=== PATIENT | female | born 1940 | race Caucasian/White ===

== ENCOUNTER 2019-06-26 19:21 | Inpatient (IN) | payer OTHER ==
[~2019-06-26] VITALS: Ht 154.9 cm; Wt 58.5 kg
--- OUTSIDE RECORDS SUMMARY | 2019-06-26 19:24 | XMS REPORT | Summary of Care ---
Author Author Roma Cisneros LVN Organization Unknown Address Unknown Phone Unavailable Care Team Providers Care Education Manager Name Role Phone AZIZA Villarreal, TUNDE Unavailable Unavailable ML Proctor, ASIM Unavailable Unavailable Blayne ROMAINRoma Unavailable Unavailable DONG Proctor, LEON Unavailable Unavailable THALIA Proctor, JOSE ARMANDO Unavailable Unavailable ML MIN LA, ASIM Lombardo Unavailable Unavailable STEPHEN MIN, ULYSSES Aldrich Unavailable Unavailable Kadeem MNI, Kuldeep Unavailable Unavailable GARTH MIN, CHIP Walters Unavailable Unavailable Thalia MIN, Jose Armando Unavailable Unavailable AZIZA WHITE SIDEWALL TIRE BUFFER-C, TUNDE D Unavailable Unavailable Dong MIN, Leon Unavailable Unavailable Unavailable Unavailable Functional Status Name Dates Details Functional status health issues are not documented Status: Name Dates Details Cognitive status health issues are not documented Status: Problems Name Dates Details Allergic rhinitis (477.9, J30.9) Status: Active Encounter for screening colonoscopy (V76.51, Z12.11) Status: Active Postoperative examination (V67.00, Z09) Status: Active Need for immunization against influenza (V04.81, Z23) Status: Active Tinnitus, bilateral (388.30, H93.13) Status: Active At risk for side effect of medication (V49.89, Z91.89) Status: Active Radicular pain of both lower extremities (724.4, M54.10) Status: Active Special Dr. Services Analysis Of Computerized Data Status: Active Duration Of Encounter - Review Of Prior Records (___ min) Status: Active Nonrheumatic aortic valve stenosis (424.1, I35.0) Status: Active Advanced care planning/counseling discussion (V65.49, Z71.89) Status: Active Fatigue (780.79, R53.83) Status: Active Breast cancer screening (V76.10, Z12.39) Status: Active Subclinical hyperthyroidism (242.90, E05.90) Status: Active Vitamin B12 deficiency (266.2, E53.8) Status: Active Left thyroid nodule (241.0, E04.1) Status: Active Chronic diarrhea (787.91, K52.9) Status: Active Cellulitis (682.9, L03.90) Status: Active Acute bronchitis due to infection (466.0, J20.8) Status: Active Aortic stenosis, moderate (424.1, I35.0) Status: Active Multiple thyroid nodules (241.1, E04.2) Status: Active Need for pneumococcal vaccination (V03.82, Z23) Status: Active Right knee pain (719.46, M25.561) Status: Active Lumbar canal stenosis (724.02, M48.061) Status: Active Weight loss, unintentional (783.21, R63.4) Status: Active Heart murmur (785.2, R01.1) Status: Active Annual physical exam (V70.0, Z00.00) Status: Active Bowel incontinence (787.60, R15.9) Status: Active Cramps, extremity (729.82, R25.2) Status: Active Smoking greater than 40 pack years (305.1, F17.210) Status: Active GERD (gastroesophageal reflux disease) (530.81, K21.9) Status: Active Elevated fasting blood sugar (790.21, R73.01) Status: Active Gout (274.9, M10.9) Status: Active Osteoporosis (733.00, M81.0) Status: Active Osteoarthrosis (715.90, M19.90) Status: Active Aortic stenosis, severe (424.1, I35.0) Status: Active Psoriasis (696.1, L40.9) Status: Active S/P aortic valve replacement (V43.3, Z95.2) Status: Active Anemia (285.9, D64.9) Status: Active 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) use of antithrombotics/antiplatelets (V58.63, Z79.02) Status: Active Medication management (V58.69, Z79.899) Status: Active 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, Z95.2) Status: Active Claudication (443.9, I73.9) Status: Active CAD S/P percutaneous coronary angioplasty (414.01, I25.10) Status: Active 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, Z95.2) Status: Active Peripheral vascular disease (443.9, I73.9) Status: Active Urinary tract infection (599.0, N39.0) Status: Active Essential (primary) hypertension (401.9, I10) Status: Active Hyperlipidemia (272.4, E78.5) Status: Active Lumbar degenerative disc disease (722.52, M51.36) Status: Active Gastroesophageal reflux disease with esophagitis (530.11, K21.0) Status: Active Pyuria (791.9, R82.81) Status: Active Abnormal MRI, lumbar spine (793.7, R93.7) Status: Active Medications Name Dates Details amLODIPine Besylate 5 MG Oral Tablet TAKE 1 TABLET BY MOUTH EVERY MORNING Quantity: 30 TUNDE ERVIN N.P. * Start : 25-Dec-2012 Active Lisinopril-hydroCHLOROthiazide 20-12.5 MG Oral Tablet TAKE 1 TABLET BY MOUTH EVERY DAY * Quantity: 90 Refills: 1 TUNDE ERVIN N.P. * Start : 17-Jan-2013 Active traMADol HCl - 50 MG Oral Tablet TAKE 1 TABLET BY MOUTH TWICE DAILY NEEDED * Quantity: 60 Refills: 0 ASIM BULL M.D. * Start : 20-Feb-2013 Active Fluticasone Propionate 50 MCG/ACT Nasal Suspension USE 1 SPRAY TO EACH NOSTRIL TWICE DAILY * Quantity: 16 Refills: 0 TUNDE ERVIN N.P. * Start : 05-Apr-2017 Active Alendronate Sodium 70 MG Oral Tablet TAKE 1 TABLET ONCE WEEKLY. * Refills: 0 Active Gabapentin 100 MG Oral Capsule TAKE 1 CAPSULE 3 TIMES DAILY- DR. LEON * Refills: 0 * Start : 16-Apr-2016 Active Iron TABS TAKE 1 TABLET DAILY * Refills: 0 Active Folic Acid TABS TAKE 1 TABLET DAILY * Refills: 0 Active Colestipol HCl - 1 GM Oral Tablet TAKE 1 TABLET BY MOUTH TWICE DAILY WITH FOOD * Quantity: 30 Refills: 0 TUNDE ERVIN N.P. * Start : 09-Jan-2018 Active Ventolin HFA 108 (90 Base) MCG/ACT Inhalation Aerosol Solution INHALE 1-2 PUFFS EVERY 8 HOURS PRN * Quantity: 1 Refills: 0 TUNDE ERVIN N.P. * Start : 20-May-2017 Active 18 GM Inhaler Methotrexate Sodium SOLN INJECTION WEEKLY * Refills: 0 Active predniSONE 10 MG Oral Tablet as needed * Refills: 0 Active Omeprazole 40 MG Oral Capsule Delayed Release TAKE 1 CAPSULE DAILY * Quantity: 30 Refills: 11 LEON UMANA M.D. * Start : 22-Sep-2017 Active Coenzyme Q10 200 MG Oral Capsule TAKE 1 CAPSULE Daily AT DINNER * Quantity: 30 Refills: 0 AZIZA N.PTUNDE Cuellar * Start : 03-May-2018 Active Inflectra 100 MG Intravenous Solution Reconstituted EVERY 6-8 WEEKS * Refills: 0 Active Ezetimibe 10 MG Oral Tablet TAKE 1 TABLET BY MOUTH EVERY DAY * Quantity: 90 Refills: 0 JOSE ARMANDO VÁSQUEZ M.D. * Start : 16-Aug-2018 Active methylPREDNISolone 4 MG Oral Tablet Therapy Pack take as directed on package * Quantity: 1 Refills: 0 TUNDE ERVIN N.P. * Start : 19-Dec-2018 Active 21 Tablet Pack Cyclobenzaprine HCl - 5 MG Oral Tablet TAKE 1 TABLET AT BEDTIME. * Quantity: 14 Refills: 0 TUNDE ERVIN N.P. * Start : 19-Dec-2018 Active Allergies and Adverse Reactions Name Dates Details Codeine Derivatives (Allergy) Status: Active Novocain SOLN (Allergy) Status: Active Penicillins (Allergy) Status: Active Past Medical History Name Dates Details History of Cervical Cancer (V10.41) Status: Resolved History of Drug dependence (304.90, F19.20) Status: Resolved History of esophageal reflux (V12.79, Z87.19) Status: Resolved History of Peripheral neuropathy, hereditary/idiopathic (356.9, G60.9) Status: Resolved History of Rheumatoid arthritis (714.0, M06.9) Status: Resolved History of sciatica (V12.49, Z86.69) Status: Resolved Procedures Procedure Dates Details MRI Spine lumbar wo contrast [id number] Date: 09-Jan-2019 History of Appendectomy Completed History of Tonsillectomy With Adenoidectomy Completed History of Hysterectomy Completed History of Heart surgery Completed History of Transcatheter aortic valve replacement Completed Immunization Name Dates Details Varicella on: Dec-2007 Td on: 05-Nov-2009 Influenza on: 11-Jan-2011 Fluzone INJ Lot #: [id number] on: 27-Dec-2013 Influenza on: Jun-2015 Prevnar 13 Intramuscular Suspension Lot #: [id number] on: 24-Oct-2015 Fluzone High-Dose SUSP Lot #: [id number] on: 23-Apr-2016 Influenza, seasonal, injectable on: 23-Feb-2017 Pneumovax 23 25 MCG/0.5ML Injection Injectable Lot #: [id number] on: 14-Sep-2017 Influenza, high dose seasonal, preservative-free on: Apr-2018 Family History Name Dates Details Family history of Brain Cancer (V16.8) Comments: Family History Status: Active Family history of Leukemia (V16.6) Comments: Family History Status: Active Family history of Heart Disease (V17.49) Comments: Family History Status: Active Family history of Arthritis (V17.7) Comments: Family History Status: Active Name Dates Details Family history of Cancer Status: Active Name Dates Details Family history of Cancer Status: Active Social History Name Dates Details - Status: Name Dates Details Former smoker Vital Signs Date Test Result Details No Known Vitals to report Results Date Description Value Details Results not documented Plan of Care Name Dates Details Planned Observations Planned Goals not documented Planned Encounters Appointment; JOSE ARMANDO VÁSQUEZ M.D. On: 22-May-2019 12:20 Appointment; ULYSSES MITCHELL On: 20-Jun-2019 11:00 Appointment; TITO AUSTIN On: 03-Sep-2019 13:00 Appointment; KULDEEP WALDROP M.D. On: 05-Sep-2019 13:00 Instructions Name Dates Details Instructions not documented Encounters Appointment; TUNDE ERVIN NP Encounter Diagnosis: Problem not documented On: 09-Mar-2017 10:00 Appointment; TUNDE ERVIN NP Encounter Diagnosis: Problem not documented On: 18-May-2017 11:45 Appointment; TUNDE ERVIN NP Encounter Diagnosis: Problem not documented On: 14-Sep-2017 10:00 Appointment; JOSE ARMANDO VÁSQUEZ M.D. Encounter Diagnosis: Problem not documented On: 20-Sep-2017 14:20 Appointment; LEON UMANA M.D. Encounter Diagnosis: Problem not documented On: 22-Sep-2017 13:00 Appointment; [facility] Encounter Diagnosis: Problem not documented On: 28-Sep-2017 13:00 Appointment; JOSE ARMANDO VÁSQUEZ M.D. Encounter Diagnosis: Problem not documented On: 28-Sep-2017 14:00 Appointment; JOSE ARMANDO VÁSQUEZ M.D. Encounter Diagnosis: Problem not documented On: 11-Nov-2017 10:40 Appointment; TUNDE ERVIN NP Encounter Diagnosis: Problem not documented On: 03-May-2018 9:30 Appointment; [facility] Encounter Diagnosis: Problem not documented On: 17-May-2018 13:00 Appointment; KULDEEP WALDROP M.D. Encounter Diagnosis: Problem not documented On: 17-May-2018 14:00 Appointment; ULYSSES MITCHELL Encounter Diagnosis: Problem not documented On: 19-May-2018 14:00 Appointment; JOSE ARMANDO VÁSQUEZ M.D. Encounter Diagnosis: Problem not documented On: 16-Jun-2018 12:20 Appointment; TUNDE ERVIN NP Encounter Diagnosis: Problem not documented On: 21-Jun-2018 12:00 Appointment; KULDEEP WALDROP M.D. Encounter Diagnosis: Problem not documented On: 30-Jun-2018 14:00 Appointment; [facility] Encounter Diagnosis: Problem not documented On: 13-Jul-2018 9:30 Appointment; KULDEEP WALDROP M.D. Encounter Diagnosis: Problem not documented On: 19-Jul-2018 11:40 Appointment; TUNDE ERVIN NP Encounter Diagnosis: Problem not documented On: 26-Jul-2018 10:15 Appointment; ASIM BULL M.D. Encounter Diagnosis: Problem not documented On: 10-Aug-2018 15:00 Appointment; JOSE ARMANDO VÁSQUEZ M.D. Encounter Diagnosis: Problem not documented On: 16-Aug-2018 12:20 Appointment; [facility] Encounter Diagnosis: Problem not documented On: 24-Aug-2018 15:00 Appointment; ULYSSES MITCHELL Encounter Diagnosis: Problem not documented On: 25-Aug-2018 13:45 Appointment; KULDEEP WALDROP M.D. Encounter Diagnosis: Problem not documented On: 06-Sep-2018 13:40 Appointment; JOSE ARMANDO VÁSQUEZ M.D. Encounter Diagnosis: Problem not documented On: 17-Nov-2018 13:20 Appointment; TUNDE ERVIN NP Encounter Diagnosis: Problem not documented On: 19-Dec-2018 13:00 Appointment; ULYSSES MITCHELL Encounter Diagnosis: Problem not documented On: 20-Dec-2018 10:30
--- OUTSIDE RECORDS SUMMARY | 2019-06-26 19:24 | XMS REPORT ---
Author Author [facility] Address Unknown Phone Unavailable Care Team Providers Care Electronic Tester Name Role Phone Unavailable Unavailable Payers Payer Name Policy Type Policy Number Effective Date Expiration Date Problems This patient has no known problems. Allergies, Adverse Reactions, Alerts Allergy Name Allergy Type Status Severity Reaction(s) Onset Date Inactive Date Treating Clinician Comments Procaine HCl DA Active MO 2014-01-11 00:00:00 Penicillins DA Active MO 2014-01-11 00:00:00 codeine DA Active MO 2014-01-11 00:00:00 Medications This patient has no known medications. Encounters Start Date/Time End Date/Time Encounter Type Admission Type Attending Clinicians Care Facility Care Department Encounter ID 2018-07-13 05:08:00 Inpatient [facility] [id number] Results Test Description Test Time Test Comments Text Results Atomic Results Result Comments - XR L-SPINE 4 + VIEWS 2019-05-17 11:33:00 FAX: Cristhian Fleiz MD [phone] [place]: O St: [facility] FAX: Houston Santos MD [phone] Name: JEANNA TYSON [facility] : 1940 Age/S: 78/F [address] Unit #: [id number] Loc: [place] [address] Phys: Cristhian Montiel MD Acct: [id number] Dis Date: Status: REG CLI PHONE #: [phone] Exam Date: 05/17/2019 1100 FAX #: [phone] Reason: LUMBAR SPONDYLOLISTHESIS EXAMS: CPT CODE: [id number] XR L-SPINE 4 + VIEWS 64981 HISTORY: LUMBAR SPONDYLOLISTHESIS TECHNIQUE: AP, flexion and extension, lateral, and lumbosacral views of the lumbar spine. Comparison:Lumbar spine radiographs February 08, 2019 FINDINGS/ IMPRESSION: Postsurgical changes of L4-L5 fusion with placement of disc spacer is once again seen. No spondylolisthesis of the fused portion of the spine or the remainder of the spine. There is disc degeneration at T12-L1 and L1-L2 with small vertebral body osteophytes that is unchanged from the previous exam. Stent graft in the common iliac arteries are unchanged in appearance. Location: [facility] at 1133 Reported and signed by: Mansoor Cota MD CC: Cristhian Montiel MD; Houston Grider Technologist: RT SHAD(Lissette) Trnscrd Date/Time/By: 05/17/2019 (1139) : By: [email or web address] Orig Print D/T: S: 05/17/2019 (9378) PAGE 1 Signed Report INTERVERTEBRAL DISC 2019-02-12 11:09:00 RUN DATE: 02/12/19 [place] [facility] PAGE 1 RUN TIME: 1109 Specimen Inquiry RUN USER: INTERFACE PATIENT: JEANNA TYSON LOC: ERINN U #: [id number] AGE/SX: 78/F ROOM: [facility] RE02/07/19REG DR: Cristhian Montiel MD : 42 BED: A DIS: 02/08/19 STATUS: DIS IN TLOC: SPEC #: [id number] RECD: 02/08/19 STATUS: MARI REQ #: [id number] DIMA: 02/07/19 DR: Cristhian Montiel MD ENTERED: 02/08/19 SP TYPE: INT DISC OTHR DR: Houston Grider MD ORDERED: GROSS COPIES TO: Cristhian Montiel MD [address] [address] [place] [id number] [facility] [place] [address] PROCEDURES: GROSS (02/09/19) TISSUES: LUMBAR REGION - DISC CLINICAL HISTORY COLLECTION DATE: 02/07/19 L4-5 SPONDYLOLISTHESIS AND RECURRENT DISC HERNIATION FINAL DIAGNOSIS Lumbar lamina and ligament, L4-5, laminectomy: CARTILAGE WITH DEGENERATIVE CHANGE NEGATIVE FOR MALIGNANCY RRB/sm D 36256, 36817 MACROSCOPIC The specimen is received in formalin, labeled with the patient's name, identified as "lumbar lamina and ligament", and consists of multiple portions of ta-pink soft and rubbery and minute portions of possible bone, measuring 3.0 x 3.0 x 1.0 cm in aggregate. Cattery Operator tissue is submitted after light decalcification in cassettes (1A and 1B). CONTINUED ON NEXT PAGE RUN DATE: 02/12/19 [facility] PAGE 2 RUN TIME: 1109 Specimen Inquiry RUN USER: INTERFACE SPEC #: [id number] PATIENT: JEANNA TYSON #[id number] (Continued) MACROSCOPIC (Continued) GROSS PERFORMED AT [facility] [address] [place] [address] [phone])[phone] MICROSCOPIC All of the stains, including any controls performed, stain appropriately. MICROSCOPIC PERFORMED AT [facility] [address] [place] [address] [phone] PERFORMING SITE Diagnosis performed at: [facility], DIETER [address] [place] [address] Signed SIGNATURE ON FILE Edmund Bautista MD 02/12/19 1109 END OF REPORT - XR L-SPINE 2/3 VIEWS 2019-02-08 10:18:00 FAX: Cristhian Feliz MD [phone] [place]: B St: [facility] FAX: Houston Santos MD [phone] Name: JEANNA TYSON [facility] : 1940 Age/S: 78/F [address] Unit #: [id number] Loc: [address] [place] [address] Phys: Cristhian Montiel MD Acct: [id number] Dis Date: Status: ADM IN PHONE #: [phone] Exam Date: 02/08/2019 [facility] FAX #: [phone] Reason: s/p fusion EXAMS: CPT CODE: [id number] XR L-SPINE 2/3 VIEWS 19215 HISTORY: s/p fusion TECHNIQUE: AP, lateral, and lumbosacral views of the lumbar spine. Comparison:CT lumbar spine January 28, 2019 FINDINGS: The patient has undergone interval posterior fusion of L4-L5 with placement of disc spacer. There is satisfactory bony alignment postoperatively. Vertebral body heights and intervertebral disc spaces are preserved. Small vertebral body osteophytes are present in the lower thoracic and upper lumbar spine. There are stent grafts in the common iliac arteries. No foraminal narrowing. IMPRESSION: Satisfactory bony alignment following fusion of L4-L5 via posterior approach with placement of disc spacer. Location: [facility] at 1018 Reported and signed by: Mansoor Cota MD CC: Cristhian Montiel MD; Houston Grider Technologist: RT DARIUS(Lissette) Trnscrd Date/Time/By: 02/08/2019 (1018) : By: [email or web address] Orig Print D/T: S: 02/08/2019 (9757) PAGE 1 Signed Report HGB HCT 2019-02-08 07:07:00 HEMOGLOBIN (test code=HGB) 9.2 gram/dL 11.5-15.5 HEMATOCRIT (test code=HCT) 28.5 % 36.0-46.0 HGB [id number] 16:01:00* Test Item Value Reference Range Comments HEMOGLOBIN (test code=HGB) 9.4 gram/dL 11.5-15.5 HEMATOCRIT (test code=HCT) 29.4 % 36.0-46.0 BASIC METABOLIC [id number] 11:28:00* Test Item Value Reference Range Comments SODIUM (test code=NA) 133 mmol/L 136-145 POTASSIUM (test code=K) 3.8 mmol/L 3.5-5.1 CHLORIDE (test code=CL) 98.0 mmol/L 98-107 CARBON DIOXIDE (test code=CO2) 28.0 mmol/L 21-32 ANION GAP (test code=GAP) 10.8 10-20 GLUCOSE (test code=GLU) 108 mg/dL 74-106 BLOOD UREA NITROGEN (test code=BUN) 8 mg/dL 7-18 GLOMERULAR FILTRATION RATE (test code=GFR) > 60 mL/min >=60 Estimated GFR by using Modified MDRD formula.Chronic kidney disease is defined as either kidney damageor GFR <60 mL/min/1.73 m2 for >3 months. CREATININE (test code=CREAT) 0.60 mg/dL 0.55-1.02 Note change in reference range due to change in reagent. BUN/CREATININE RATIO (test code=BUN/CREA) 13.7 10-20 CALCIUM (test code=CA) 9.3 mg/dL 8.5-10.1 BASIC METABOLIC [id number] 11:26:00* Test Item Value Reference Range Comments SODIUM (test code=NA) 133 mmol/L 136-145 POTASSIUM (test code=K) 3.8 mmol/L 3.5-5.1 CHLORIDE (test code=CL) 98.0 mmol/L 98-107 CARBON DIOXIDE (test code=CO2) mmol/L 21-32 ANION GAP (test code=GAP) 10-20 GLUCOSE (test code=GLU) mg/dL 74-106 BLOOD UREA NITROGEN (test code=BUN) mg/dL 7-18 GLOMERULAR FILTRATION RATE (test code=GFR) mL/min >=60 CREATININE (test code=CREAT) mg/dL 0.55-1.02 BUN/CREATININE RATIO (test code=BUN/CREA) 10-20 CALCIUM (test code=CA) mg/dL 8.5-10.1 PROTHROMBIN [id number] 11:15:00* Test Item Value Reference Range Comments PROTHROMBIN TIME PATIENT (test code=PTP) 12.9 seconds 9.0-14.0 INTERNATIONAL NORMAL RATIO (test code=INR) 1.1 0.8-1.2 The therapeutic range for oral anticoagulant therapy formost indications is an international normalized ratio (INR)of between 2.0 and 3.0. The recommended therapeutic INRrange for various clinical situations is listed below: Clinical Situation INR range Pulmonary e mbolism treatment (2.0-3.0)Venous thrombosis treatmentVenous thrombosis prophylaxis (high risk surgery)Prevention of systemic embolism from: Acute myocardial infarction Valvular heart disease Atrial fibrillation Mechanical prosthetic heart valves (2.5-3.5) THROMBOPLASTIN TIME [id number] 11:15:00* Test Item Value Reference Range Comments THROMBOPLASTIN TIME PARTIAL (test code=PTT) 33.4 seconds 25.0-36.5 - CT L-SPINE W/O [id number] 11:10:00 Name: JEANNA TYSON [facility] : 1940 Age/S: 78 / F [address] [facility] Unit #: [id number] Loc: [place] [address] Phys: Cristhian Montiel MD Acct: [id number] Dis Date: Status: PRE IN PHONE #: [phone] Exam Date: 02/05/2019 1030 FAX #: [phone] Reason: PRE OP EXAMS: CPT CODE: [id number] CT L-SPINE W/O CONTRAST 36446 HISTORY: PRE OP TECHNIQUE: 2.[address] of the lumbar spine with coronal and sagittal reformatting. Automated exposure control for dose reduction. COMPARISON: None FINDINGS: No acute fracture. No subluxation. There is grade 1 L4-L5 anterolisthesis. Remainder of the lumbar spine is appropriately aligned. Vertebral body heights are preserved. However there are small vertebral body osteophytes throughout the lumbar spine. There is height loss of the L4-L5 disc space. There is a left-sided L4 pars defect. Atherosclerotic disease is scattered throughout the abdominal aorta and the visualized mesenteric arteries. There is also extensive atherosclerotic disease in the iliac arteries. Bilateral common iliac artery stents are present. T12-L1: No disc bulge or protrusion. No cental canal or foraminal stenosis L1-L2: No disc bulge or protrusion. No cental canal or foraminal stenosis L2-L3: No disc bulge or protrusion. No cental canal or foraminal stenosis L3-L4: No disc bulge or protrusion. No cental canal or foraminal stenosis L4-L5: No disc bulge or protrusion. No cental canal or foraminal stenosis L5-S1: No disc bulge or protrusion. No cental canal or foraminal stenosis IMPRESSION: Left-sided L4 pars defect with grade 1 L4-L5 a nterolisthesis as well PAGE 1 Signed Report (CONTINUED) Name: JEANNA TYSON [facility] : 1940 Age/S: 78 / F [address] Unit #: [id number] Loc: [place] [address] Phys: Cristhian Montiel MD Acct: [id number] Dis Date: Status: PRE IN PHONE #: [phone] Exam Date: 02/05/2019 1030 FAX #: [phone] Reason: PRE OP EXAMS: CPT CODE: [id number] L-SPINE W/O CONTRAST 32334 < Continued> as disc degeneration. However there is no significant narrowing of the spinal canal or neuroforamina. There are mild degenerative changes throughout the remainder of the lumbar spine. at 1110 Reported and signed by: Mansoor Cota MD CC: Cristhian Montiel MD; Houston Grider Technologist:Ray Toney RT(R),(MR),(CT) CTDI: DLP: Trnscb Date/Time: 02/05/2019 (1110) [email or web address] Orig Print D/T: S: 02/05/2019 (1113) PAGE 2 Signed Report CBC W/AUTO [id number] 10:50:00* Test Item Value Reference Range Comments WHITE BLOOD CELL (test code=WBC) 7.3 K/mm3 4.5-12.5 RED BLOOD CELL (test code=RBC) 3.79 mill/mm3 3.7-5.2 HEMOGLOBIN (test code=HGB) 11.6 gram/dL 11.5-15.5 HEMATOCRIT (test code=HCT) 36.6 % 36.0-46.0 MEAN CELL VOLUME (test code=MCV) 96.6 fL 80-98 MEAN CELL HGB (test code=MCH) 30.6 picogram 27.0-33.0 MEAN CELL HGB CONCETRATION (test code=MCHC) 31.7 gram/dL 33.0-36.0 RED CELL DISTRIBUTION WIDTH (test code=RDW) 13.9 % 11.6-16.2 RED CELL DISTRIBUTION WIDTH SD (test code=RDW-SD) 49.5 fL 37.0-51.0 PLATELET COUNT (test code=PLT) 228 K/mm3 150-450 MEAN PLATELET VOLUME (test code=MPV) 10.2 fL 6.7-11.0 NEUTROPHIL % (test code=NT%) 62.0 % 39.0-69.0 IMMATURE GRANULOCYTE % (test code=IG%) 0.5 % 0.0-5.0 LYMPHOCYTE % (test code=LY%) 21.0 % 25.0-55.0 MONOCYTE % (test code=MO%) 14.1 % 0.0-10.0 EOSINOPHIL % (test code=EO%) 1.9 % 0.0-5.0 BASOPHIL % (test code=BA%) 0.5 % 0.0-1.0 NUCLEATED RBC % (test code=NRBC%) 0.0 % 0-0 NEUTROPHIL # (test code=NT#) 4.50 K/mm3 1.8-7.7 IMMATURE GRANULOCYTE # (test code=IG#) 0.04 x10 3/uL 0-0.03 LYMPHOCYTE # (test code=LY#) 1.53 K/mm3 1.0-5.0 MONOCYTE # (test code=MO#) 1.03 K/mm3 0-0.8 EOSINOPHIL # (test code=EO#) 0.14 K/mm3 0.0-0.5 BASOPHIL # (test code=BA#) 0.04 K/mm3 0.0-0.2 NUCLEATED RBC # (test code=NRBC#) 0.00 K/mm3 0.0-0.1 MANUAL DIFF REQUIRED (test code=MDIFF) NO CBC W/AUTO [id number] 10:44:00* Test Item Value Reference Range Comments WHITE BLOOD CELL (test code=WBC) K/mm3 4.5-12.5 RED BLOOD CELL (test code=RBC) mill/mm3 3.7-5.2 HEMOGLOBIN (test code=HGB) 11.6 gram/dL 11.5-15.5 HEMATOCRIT (test code=HCT) 36.6 % 36.0-46.0 MEAN CELL VOLUME (test code=MCV) fL 80-98 MEAN CELL HGB (test code=MCH) picogram 27.0-33.0 MEAN CELL HGB CONCETRATION (test code=MCHC) gram/dL 33.0-36.0 RED CELL DISTRIBUTION WIDTH (test code=RDW) % 11.6-16.2 RED CELL DISTRIBUTION WIDTH SD (test code=RDW-SD) fL 37.0-51.0 PLATELET COUNT (test code=PLT) K/mm3 150-450 MEAN PLATELET VOLUME (test code=MPV) fL 6.7-11.0 NEUTROPHIL % (test code=NT%) % 39.0-69.0 IMMATURE GRANULOCYTE % (test code=IG%) % 0.0-5.0 LYMPHOCYTE % (test code=LY%) % 25.0-55.0 MONOCYTE % (test code=MO%) % 0.0-10.0 EOSINOPHIL % (test code=EO%) % 0.0-5.0 BASOPHIL % (test code=BA%) % 0.0-1.0 NEUTROPHIL # (test code=NT#) K/mm3 1.8-7.7 LYMPHOCYTE # (test code=LY#) K/mm3 1.0-5.0 MONOCYTE # (test code=MO#) K/mm3 0-0.8 EOSINOPHIL # (test code=EO#) K/mm3 0.0-0.5 BASOPHIL # (test code=BA#) K/mm3 0.0-0.2 - XR CHEST 2 [id number] 10:42:00 FAX: Cristhina Feliz MD [phone] [place]: O St: PRE FAX: Houston Santos MD [phone] Name: JEANNA TYSON [facility] : 1940 Age/S: 78/F [address] [facility] Unit #: [id number] Loc: [place] [address] Phys: Cristhian Montiel MD Acct: [id number] Dis Date: Status: PRE IN PHONE #: [phone] Exam Date: 02/05/2019 1025 FAX #: [phone] Reason: PRE OP EXAMS: CPT CODE: [id number] XR CHEST 2 V 53927 REASON FOR EXAM: PRE OP Exam Order Date: 02/05/2019 10:08 AM Ordering M.D.: Cristhian Montiel MD PROCEDURE: - XR CHEST 2 V COMPARISON: 2 view chest x-ray January 11, 2014 FINDINGS: The lungs are clear. There is no pleural effusion or pneumothorax. Pulmonary vascularity is within normal limits. Cardiomediastinal silhouette is normal in size for technique. The mediastinal contours are within normal limits. Patient has undergone prior endovascular aortic valve replacement. Coronary stent is present. Degenerative changes are present in the spine. The visualized upper abdomen is within normal limits. IMPRESSION: No acute cardiopulmonary process. Location: [facility] at 1042 Reported and signed by: Mansoor Cota MD CC: Cristhian Montiel MD; [place] Grider Technologist: RT Feli(Lissette) Trnscrd Date/Time/By: 02/05/2019 (1047) : By: [email or web address] [facility] Print D/T: S: 02/05/2019 (1365) PAGE 1 Signed Report SCR MAMM BILATERAL AGATA CAD [id number] 16:05:53 - SCR MAMM BILATERAL AGATA CAD DIGITALBILATERAL DIGITAL SCREENING MAMMOGRAM 3D/2D WITH CAD: 09/18/2018CLINICAL: Asymptomatic. Digital breast tomosynthesis was performed in addition to routine CC and MLO views. Current mammographic images were evaluated by either a [employer] M-Vu or a [employer] ImageChecker CAD (computer aided detection system). Comparison is made to exams dated 09/14/2017 mammogram, 08/09/2016 mammogram, and 05/26/2015 mammogram - [facility]-. There are scattered fibroglandular tissues in both breasts. There are benign vascular calcifications in both breasts. No suspicious mass, architectural distortion, malignant type calcification, or lymph node abnormality detected. Breast heron ecture is stable compared to prior exams.IMPRESSION: BENIGNThere is no mammograp hic evidence of malignancy. Resume annual screening mammography in one year. Sa rosa fry/morris:09/18/2018 16:05:53 Imaging Technologis t: Sindhu Hughes FW, [facility]-FWletter sent: BIRADS 1-2 Normal Mammogram BI-RADS: 2 Benign
--- OUTSIDE RECORDS SUMMARY | 2019-06-26 19:24 | XMS REPORT | Summary of Care ---
Author Author Patricia Barron R.N. Unknown Address [place] [facility] Phone Unavailable Care Team Providers Care College President Name Role Phone AZIZA Villarreal, TUNDE Unavailable Unavailable ML Proctor, ASIM Unavailable Levy UMANA M.D., LEON Unavailable Unavailable THALIA Proctor, JOSE ARMANDO Unavailable Unavailable ML MIN SC, ASIM Lombardo Unavailable Unavailable STEPHEN MIN, ULYSSES Aldrich Unavailable Unavailable Kadeem MIN, Kuldeep Unavailable Unavailable GARTH MIN, CHIP Walters Unavailable Unavailable Thalia MIN, Jose Armando Unavailable Unavailable AZIZA SPA DIRECTOR-C, TUNDE Avelar Unavailable Unavailable Sweta MIN, Leon Unavailable Unavailable Unavailable Unavailable Functional [...] than 40 pack years (305.1, F17.210) Status: Auto Complete GERD (gastroesophageal reflux disease) (530.81, K21.9) Status: Active Elevated fasting blood sugar (790.21, R73.01) Status: Active Gout (274.9, M10.9) Status: Active Osteoporosis (733.00, M81.0) Status: Active Osteoarthrosis (715.90, M19.90) Status: Active Aortic stenosis, severe (424.1, I35.0) Status: Active Psoriasis (696.1, L40.9) Status: Active S/P aortic valve replacement (V43.3, Z95.2) Status: Active Anemia (285.9, D64.9) Status: Active 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 * Start : 17-Jan-2013 [...] DINNER * Quantity: 30 Refills: 0 AZIZA Bonner.TUNDE Chin * Start : 03-May-2018 Active Inflectra 100 MG Intravenous Solution Reconstituted EVERY 6-8 WEEKS * Refills: 0 Active Ezetimibe 10 MG Oral Tablet TAKE 1 TABLET BY MOUTH EVERY DAY * Quantity: 90 Refills: 2 JOSE ARMANDO VÁSQUEZ M.D. * Start : 16-Aug-2018 Active Cyclobenzaprine HCl - 5 MG Oral Tablet TAKE 1 TABLET AT BEDTIME. * Quantity: 14 Refills: 0 TUNDE ERVIN N.P. * Start : 19-Dec-2018 Active amLODIPine Besylate 10 MG Oral Tablet TAKE 1 TABLET BY MOUTH DAILY * Quantity: 90 Refills: 2 JOSE ARMANDO VÁSQUEZ M.D. * Start : 22-May-2019 Active Allergies and Adverse Reactions Name Dates [...] Z86.69) Status: Resolved Procedures Procedure Dates Details History of Appendectomy Completed History of Tonsillectomy With Adenoidectomy Completed History of Hysterectomy Completed History of Heart surgery Completed History of Transcatheter aortic valve replacement Completed Immunization Name Dates Details Varicella on: Dec-2007 Td on: 05-Nov-2009 Influenza on: 11-Jan-2011 Fluzone INJ Lot #: [id number] on: 27-Dec-2013 Influenza on: Jun-2015 Prevnar 13 Intramuscular Suspension Lot #: [id number] on: 24-Oct-2015 Fluzone High-Dose SUSP Lot #: [id number] on: 23-Apr-2016 Influenza, seasonal, injectable on: 23-Feb-2017 Pneumovax 23 25 MCG/0.5ML Injection Injectable Lot #: [id number] on: 14-Sep-2017 Influenza, high dose seasonal, preservative-free [...] smoker Vital Signs Date Test Result Details 28-Vft-555075:34 BP Systolic 169 mm[Hg] Status: Comments: Location: LUE; Position: Sitting BP Diastolic 89 mm[Hg] Status: Comments: Location: LUE; Position: Sitting Heart Rate 82 /min Status: 77-Epq-131009:19 BP Systolic 175 mm[Hg] Status: Comments: Location: LUE; Position: Sitting BP Diastolic 71 mm[Hg] Status: Comments: Location: LUE; Position: Sitting Heart Rate 79 /min Status: Height 62 in Status: Weight 133.125 lb Status: Body Mass Index Calculated 24.35 kg/m2 Status: Body Surface Area Calculated 1.61 m2 Status: Temperature 98 f Status: Comments: Method: Oral Results Date Description Value Details Results not documented Plan of Care Name Dates Details Planned Observations Planned Goals not documented Planned Encounters Appointment; ULYSSES MITCHELL On: 20-Jun-2019 11:00 Appointment; TITO AUSTIN On: 31-Aug-2019 13:00 Appointment; JOSE ARMANDO VÁSQUEZ M.D. On: 20-Feb-2020 14:40 Interventions Provided Medication Changes* amLODIPine Besylate 10 MG Oral Tablet - Start * Ezetimibe 10 MG Oral Tablet - Renew Plan* 1. Chest discomfort: exertional, typical angina, now resolved post PCI of the mLCx and RCA ) FFR + 0.79 and 0.78) * a. TTE 2019:normal LV function severe aortic stenosis on TTE 09/28/2017 s/p TAVR * b. RHC with normal pressures * 2. OK to hold clopidogrel due to anemia, cont asa 81mg daily * 3. Interm claudication/severe PVD * a. ABIs and duplex reviewed * b. cont cilostazol 50, will cont asa 81mg daily , off plavix 75mg daily * c. 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 HL: intolerance to several different statins * a. LDL 02/16/2016 was 110 -> 83 09/2017-> 105 2018, reviewed * b. low fat diet * c. cont ezetimibe 10, off rosuvastatin 20mg daily due to muscle pain. * 5.Severe post TAVR 09/28/2017 * a. asymptomatic * b. TTE with next visit Instructions Name Dates Details Instructions not documented Encounters Appointment; TUNDE ERVIN NP Encounter Diagnosis: Problem not documented On: 14-Sep-2017 10:00 Appointment; JOSE ARMANDO VÁSQUEZ M.D. Encounter Diagnosis: Problem not documented On: 20-Sep-2017 14:20 Appointment; LEON UMANA M.D. Encounter Diagnosis: Problem not documented On: 22-Sep-2017 13:00 Appointment; KADIE-MS, ECHO Encounter Diagnosis: Problem not documented On: 28-Sep-2017 13:00 Appointment; JOSE ARMANDO VÁSQUEZ M.D. Encounter Diagnosis: Problem not documented On: 28-Sep-2017 14:00 Appointment; JOSE ARMANDO VÁSQUEZ M.D. Encounter Diagnosis: Problem not documented On: 11-Nov-2017 10:40 Appointment; TUNDE ERVIN NP Encounter Diagnosis: Problem not documented On: 03-May-2018 9:30 Appointment; KADIE-MS, ECHO Encounter Diagnosis: Problem not documented On: 17-May-2018 13:00 Appointment; KULDEEP WALDROP M.D. Encounter Diagnosis: Problem not documented On: 17-May-2018 14:00 Appointment; ULYSSES MITCHELL Encounter Diagnosis: Problem not documented On: 19-May-2018 14:00 Appointment; JOSE ARMANDO VÁQSUEZ M.D. Encounter Diagnosis: Problem not documented On: [...] Problem not documented On: 16-Aug-2018 12:20 Appointment; GEOVANNA, ECHO Encounter Diagnosis: Problem not documented On: [...] Diagnosis: Problem not documented On: 20-Dec-2018 10:30 Appointment; JOSE ARMANDO VÁSQUEZ M.D. Encounter Diagnosis: Problem not documented On: 22-May-2019 12:20
--- OUTSIDE RECORDS SUMMARY | 2019-06-26 19:25 | XMS REPORT | Summary of Care ---
Author Author TUNDE ERVIN APRN Unknown Address Unknown Phone Unavailable Care Team Providers Care Coal Conveyor Operator Name Role Phone TUNDE ERVIN APRN Unavailable Unavailable ML Proctor, ASIM Unavailable Levy UMANA M.D., LEON Unavailable Unavailable THALIA Proctor, JOSE ARMANDO Unavailable Unavailable ML MIN SD, ASIM Lombardo Unavailable Unavailable STEPHEN MIN, ULYSSES Aldrich Unavailable Unavailable Kadeem MIN, Kuldeep Unavailable Unavailable GARTH MIN, CHIP Walters Unavailable Unavailable Thalia MIN, Jose Armando Unavailable Unavailable AZIZA COGNOS BI ADMINISTRATOR-C, TUNDE Avelar Unavailable Unavailable Sweta MIN, Leon [...] Status: Active Anemia (285.9, D64.9) Status: Active senior living (current) use of antithrombotics/antiplatelets (V58.63, Z79.02) Status: Active Medication management (V58.69, Z79.899) Status: Active Claudication (443.9, I73.9) Status: Active 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, Z95.2) Status: Active Urinary tract infection (599.0, N39.0) Status: Active Lumbar degenerative disc disease (722.52, M51.36) Status: Active Gastroesophageal reflux disease with esophagitis (530.11, K21.0) Status: Active Pyuria (791.9, R82.81) Status: Active Abnormal MRI, lumbar spine (793.7, R93.7) Status: Active CAD S/P percutaneous coronary angioplasty (414.01, I25.10) Status: Active Hyperlipidemia (272.4, E78.5) Status: Active Essential (primary) hypertension (401.9, I10) Status: Active Peripheral vascular disease (443.9, I73.9) Status: Active 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 * Start : 20-Feb-2013 Active Fluticasone Propionate 50 MCG/ACT Nasal Suspension USE 1 SPRAY TO EACH NOSTRIL TWICE DAILY * Quantity: 3 Refills: 1 TUNDE ERVIN APRN * Start : 20-Feb-2013 Active 15.8 ML Bottle Gabapentin 100 MG Oral Capsule TAKE 1 CAPSULE 3 TIMES DAILY- DR. LEON * Refills: 0 * Start : 16-Apr-2016 Active Iron TABS TAKE 1 TABLET DAILY * Refills: 0 Active Folic Acid TABS TAKE 1 TABLET DAILY * Refills: 0 Active Methotrexate Sodium SOLN INJECTION WEEKLY * Refills: 0 Active predniSONE 10 MG Oral Tablet as needed * Refills: 0 Active Alendronate Sodium 70 MG Oral Tablet TAKE 1 TABLET ONCE WEEKLY. * Refills: 0 Active Ventolin HFA 108 (90 Base) MCG/ACT Inhalation Aerosol Solution INHALE 1-2 PUFFS EVERY 8 HOURS PRN * Quantity: 1 Refills: 0 TUNDE ERVIN APRN * Start : 20-May-2017 Active 18 GM Inhaler Coenzyme Q10 200 MG Oral Capsule TAKE 1 CAPSULE Daily AT DINNER * Quantity: 30 Refills: 0 TUNDE ERVIN APRN * Start : 03-May-2018 Active Inflectra 100 MG Intravenous Solution Reconstituted EVERY 6-8 WEEKS * Refills: 0 Active Cyclobenzaprine HCl - 5 MG Oral Tablet TAKE 1 TABLET AT BEDTIME. * Quantity: 14 Refills: 0 ERVIN SANTHOSH TUNDE * Start : 19-Dec-2018 Active Omeprazole 40 MG Oral Capsule Delayed Release TAKE 1 CAPSULE DAILY * Quantity: 30 Refills: 11 LEON UMANA M.D. * Start : 22-Sep-2017 Active Ezetimibe 10 MG Oral Tablet TAKE 1 TABLET BY MOUTH EVERY DAY * Quantity: 90 Refills: 2 THALIA Proctor, JOSE ARMANDO * Start : 16-Aug-2018 Active amLODIPine Besylate 10 MG Oral Tablet TAKE 1 TABLET BY MOUTH DAILY * Quantity: 90 Refills: 2 THALIA Proctor, JOSE ARMANDO * Start : 22-May-2019 Active DULoxetine HCl - 30 MG Oral Capsule Delayed Release Particles TAKE 1 CAPSULE at dinner daily * Quantity: 30 Refills: 5 TUNDE ERVIN APRN * Start : 13-Jun-2019 Active Allergies and Adverse Reactions Name Dates [...] Influenza on: 11-Jan-2011 Fluzone INJ Lot #: [id number] on: 27-Dec-2013 Influenza on: Jun-2015 Prevnar 13 Intramuscular Suspension Lot #: [id number] on: 24-Oct-2015 Fluzone High-Dose SUSP Lot #: [id number] on: 23-Apr-2016 Influenza, seasonal, injectable on: 23-Feb-2017 Pneumovax 23 25 MCG/0.5ML Injection Injectable Lot #: [id number] on: 14-Sep-2017 Influenza, high dose seasonal, preservative-free [...] Dates Details - Status: Name Dates Details Ex-smoker (finding) Vital Signs Date Test Result Details :23 Systolic blood pressure 128 mm[Hg] Status: Comments: Location: LUE; Position: Sitting Diastolic blood pressure 63 mm[Hg] Status: Comments: Location: LUE; Position: Sitting Body height 62 in Status: Weight 130 lb Status: Body mass index (BMI) [Ratio] 23.78 kg/m2 Status: Body surface area Derived from formula 1.59 m2 Status: Body temperature 98.2 f Status: Comments: Method: Temporal Respiratory rate 16 /min Status: Heart Rate 81 /min Status: :34 Systolic blood pressure 169 mm[Hg] Status: Comments: Location: LUE; Position: Sitting Diastolic blood pressure 89 mm[Hg] Status: Comments: Location: LUE; Position: Sitting Heart Rate 82 /min Status: :19 Systolic blood pressure 175 mm[Hg] Status: Comments: Location: LUE; Position: Sitting Diastolic blood pressure 71 mm[Hg] Status: Comments: Location: LUE; Position: Sitting Body height 62 in Status: Weight 133.125 lb Status: Body mass index (BMI) [Ratio] 24.35 kg/m2 Status: Body surface area Derived from formula 1.61 m2 Status: Body temperature 98 f Status: Comments: Method: Oral Heart Rate 79 /min Status: Results Date Description Value Details Results not documented Plan of Care Name Dates Details Planned Observations Planned Goals not documented Planned Encounters Appointment; ULYSSES MITCHELL On: 20-Jun-2019 11:00 Appointment; [facility] On: 31-Aug-2019 13:00 Appointment; KULDEEP WALDROP M.D. On: 17-Sep-2019 13:00 Appointment; JOSE ARMANDO VÁSQUEZ M.D. On: 20-Feb-2020 14:40 Interventions Provided Medication Changes* DULoxetine HCl - 30 MG Oral Capsule Delayed Release Particles - Start * Fluticasone Propionate 50 MCG/ACT Nasal Suspension - Renew Instructions Name Dates Details Instructions not documented Encounters Appointment; TUNDE ERVIN APRN Encounter Diagnosis: Problem not documented On: 14-Sep-2017 [...] documented On: 11-Nov-2017 10:40 Appointment; TUNDE ERVIN APRN Encounter Diagnosis: Problem not documented On: 03-May-2018 9:30 Appointment; [facility], [facility] Encounter Diagnosis: Problem not documented On: 17-May-2018 13:00 Appointment; KULDEEP WALDROP M.D. Encounter Diagnosis: Problem not documented On: 17-May-2018 14:00 Appointment; ULYSSES MITCHELL Encounter Diagnosis: Problem not documented On: 19-May-2018 14:00 Appointment; JOSE ARMANDO VÁSQUEZ M.D. Encounter Diagnosis: Problem not documented On: 16-Jun-2018 12:20 Appointment; TUNDE ERVIN APRN Encounter Diagnosis: Problem not documented On: 21-Jun-2018 12:00 Appointment; KULDEEP WALDROP M.D. Encounter Diagnosis: Problem not documented On: 30-Jun-2018 14:00 Appointment; [facility], CARDIO Encounter Diagnosis: Problem not documented On: 13-Jul-2018 9:30 Appointment; KULDEEP WALDROP M.D. Encounter Diagnosis: Problem not documented On: 19-Jul-2018 11:40 Appointment; TUNDE ERVIN APRN Encounter Diagnosis: Problem not documented On: 26-Jul-2018 10:15 Appointment; ASIM BULL M.D. Encounter Diagnosis: Problem not documented On: 10-Aug-2018 15:00 Appointment; JOSE ARMANDO VÁSQUEZ M.D. Encounter Diagnosis: Problem not documented On: 16-Aug-2018 12:20 Appointment; [facility], ECHO Encounter Diagnosis: Problem not documented On: 24-Aug-2018 15:00 Appointment; ULYSSES MITCHELL Encounter Diagnosis: Problem not documented On: 25-Aug-2018 13:45 Appointment; KULDEEP WALDROP M.D. Encounter Diagnosis: Problem not documented On: 06-Sep-2018 13:40 Appointment; JOES ARMANDO VÁSQUEZ M.D. Encounter Diagnosis: Problem not documented On: 17-Nov-2018 13:20 Appointment; TUNDE ERVIN APRN Encounter Diagnosis: Problem not documented On: 19-Dec-2018 13:00 Appointment; ULYSSES MITCHELL Encounter Diagnosis: Problem not documented On: 20-Dec-2018 10:30 Appointment; JOSE ARMANDO VÁSQUEZ M.D. Encounter Diagnosis: Problem not documented On: 22-May-2019 12:20 Appointment; TUNDE ERVIN APRN Encounter Diagnosis: Problem not documented On: 13-Jun-2019 10:45
--- OUTSIDE RECORDS SUMMARY | 2019-06-26 19:25 | XMS REPORT | Summary of Care ---
Author Author Santos Miranda, Gem Francisco Unknown Address Unknown Phone Unavailable Care Team Providers Care Broadcast Systems Engineer Name Role Phone AZIZA Sosa., TUNDE Unavailable Unavailable ML Proctor, ASIM Unavailable Levy UMANA M.D., LEON Unavailable Unavailable THALIA Proctor, JOSE ARMANDO Unavailable Unavailable Santos Miranda, Gem Unavailable Unavailable ML MIN [place], ASIM Lombardo Unavailable Unavailable STEPHEN MIN, ULYSSES Aldrich Unavailable Unavailable Kadeem MIN, Kuldeep Unavailable Unavailable GARTH MIN, CHIP Walters Unavailable Unavailable Thalia MIN, Jose Armando Unavailable Unavailable AZIZA CUSTODIAL ENGINEER-C, TUNDE Avelar Unavailable Unavailable Sweta MIN, Leon [...] Status: Active Anemia (285.9, D64.9) Status: Active [facility] (current) use of antithrombotics/antiplatelets (V58.63, Z79.02) Status: [...] aortic valve replacement) (V43.3, Z95.2) Status: Active Medications Name Dates Details Lisinopril-hydroCHLOROthiazide [...] 0 TUNDE ERVIN N.P. * Start : 03-May-2018 Active Inflectra 100 [...] Influenza on: 11-Jan-2011 Fluzone INJ Lot #: [id number] on: 27-Dec-2013 Influenza on: Jun-2015 Prevnar 13 Intramuscular Suspension Lot #: [id number] on: 24-Oct-2015 Fluzone High-Dose SUSP Lot #: [id number] on: 23-Apr-2016 Influenza, seasonal, injectable on: 23-Feb-2017 Pneumovax 23 25 MCG/0.5ML Injection Injectable Lot #: [id number] on: 14-Sep-2017 Influenza, high dose seasonal, preservative-free [...] smoker Vital Signs Date Test Result Details [id number] BP Systolic 169 mm[Hg] Status: Comments: Location: LUE; Position: Sitting BP Diastolic 89 mm[Hg] Status: Comments: Location: LUE; Position: Sitting Heart Rate 82 /min Status: 21-Wfh-213540:19 BP Systolic 175 mm[Hg] Status: Comments: Location: [...] Appointment; TITO [place] On: 31-Aug-2019 13:00 Appointment; KULDEEP WALDROP M.D. On: 17-Sep-2019 13:00 Appointment; JOSE ARMANDO VÁSQUEZ M.D. On: 20-Feb-2020 14:40 Instructions Name Dates Details Instructions not documented [...]
--- OUTSIDE RECORDS SUMMARY | 2019-06-26 19:25 | XMS REPORT | Summary of Care ---
Author Author TUNDE ERVIN APRN Unknown Address Unknown Phone Unavailable Care Team Providers Care Java Jsf Developer Name Role Phone TUNDE ERVIN APRN Unavailable Unavailable ML Proctor, ASIM Unavailable Levy UMANA M.D., LEON Unavailable Unavailable THALIA Proctor, JOSE ARMANDO Unavailable Unavailable ML MIN MN, ASIM Lombardo Unavailable Unavailable STEPHEN MIN, ULYSSES Aldrich Unavailable Unavailable Kadeem MIN, Kuldeep Unavailable Unavailable GARTH MIN, CHIP Walters Unavailable Unavailable Thalia MIN, Jose Armando Unavailable Unavailable AZIZA [employer] MEMBER-C, TUNDE Avelar Unavailable Unavailable Sweta MIN, Leon [...] Status: Active Anemia (285.9, D64.9) Status: Active longterm (current) use of antithrombotics/antiplatelets (V58.63, Z79.02) Status: [...] Influenza on: 11-Jan-2011 Fluzone INJ Lot #: [id number] on: 27-Dec-2013 Influenza on: Jun-2015 Prevnar 13 Intramuscular Suspension Lot #: [id number] on: 24-Oct-2015 Fluzone High-Dose SUSP Lot #: [id number] on: 23-Apr-2016 Influenza, seasonal, injectable on: 23-Feb-2017 Pneumovax 23 25 MCG/0.5ML Injection Injectable Lot #: [id number] on: 14-Sep-2017 Influenza, high dose seasonal, preservative-free [...] mm[Hg] Status: Comments: Location: LUE; Position: Sitting Physical Findings 0 Status: Comments: Alcohol Screen - How many times in the past yr have you had 5 (for M) or 4 (for F) or 4 (for all > 65yrs) or more drinks in a day? Physical Findings 2 Status: Comments: PHQ-9 Adult Depression Screening Body height 62 in Status: Weight 130 [...] documented Planned Encounters Appointment; ULYSSES MITCHELL On: 06-Jul-2019 15:45 Appointment; [facility] On: 31-Aug-2019 13:00 Appointment; [...] Problem not documented On: 22-Sep-2017 13:00 Appointment; [facility] Encounter Diagnosis: Problem not documented On: 28-Sep-2017 13:00 Appointment; JOSE ARMANDO VÁSQUEZ M.D. Encounter Diagnosis: Problem not documented On: 28-Sep-2017 14:00 Appointment; JOSE ARMANDO VÁSQUEZ M.D. Encounter Diagnosis: Problem not documented On: 11-Nov-2017 10:40 Appointment; TUNDE ERVIN APRN Encounter Diagnosis: Problem not documented On: 03-May-2018 9:30 Appointment; [facility] Encounter Diagnosis: Problem not documented On: [...] Problem not documented On: 16-Aug-2018 12:20 Appointment; [facility] ECHO Encounter Diagnosis: Problem not documented On: [...]
--- OUTSIDE RECORDS SUMMARY | 2019-06-26 19:25 | XMS REPORT | Summary of Care ---
Author Author Nissa Nation M.A. Unknown Address Unknown Phone Unavailable Care Team Providers Care Edge Blacker Name Role Phone AZIZA TREVIZO, TUNDE Unavailable Unavailable ML Proctor, ASIM UMANA M.D., LEON Unavailable Unavailable THALIA Proctor, JOSE ARMANDO Unavailable Unavailable ML MIN [place], ASIM Lombardo Unavailable Unavailable STEPHEN MIN, ULYSSES Aldrich Unavailable Unavailable Kadeem MIN, Kuldeep Unavailable Unavailable GARTH MIN, CHIP Walters Unavailable Unavailable Thalia MIN, Jose Armando Unavailable Unavailable AZIZA COST REDUCTION ENGINEER-C, TUNDE Avelar Unavailable Unavailable Sweta MIN, [...] lower extremities (724.4, M54.10) Status: Active Special [employer] Analysis Of Computerized Data Status: Active [...] Status: Active Cellulitis (682.9, L03.90) Status: Active Aortic stenosis, moderate (424.1, I35.0) [...] Status: Active Anemia (285.9, D64.9) Status: Active [facility] (current) use of antithrombotics/antiplatelets (V58.63, Z79.02) Status: [...] Active Chronic osteoarthritis (715.90, M19.90) Status: Active Acute bronchitis due to infection (466.0, J20.8) Status: Active Medications Name Dates Details Lisinopril-hydroCHLOROthiazide [...] Start : 20-Feb-2013 Active 15.8 ML Bottle Alendronate Sodium 70 MG Oral Tablet TAKE 1 TABLET ONCE WEEKLY. * Refills: 0 Active Gabapentin 100 MG Oral Capsule TAKE 1 CAPSULE 3 TIMES DAILY- DR. LEON * Refills: 0 * Start : 16-Apr-2016 Active Iron TABS TAKE 1 TABLET DAILY * Refills: 0 Active Folic Acid TABS TAKE 1 TABLET DAILY * Refills: 0 Active Ventolin HFA 108 [...] * Quantity: 14 Refills: 0 TUNDE ERVIN APRN * Start : 19-Dec-2018 Active amLODIPine Besylate 10 MG Oral Tablet TAKE 1 TABLET BY MOUTH DAILY * Quantity: 90 Refills: 2 JOSE ARMANDO VÁSQUEZ M.D. * Start : 22-May-2019 Active DULoxetine HCl - 30 MG Oral Capsule Delayed Release Particles TAKE 1 CAPSULE at dinner daily * Quantity: 30 Refills: 5 TUNDE ERVIN APRN * Start : 13-Jun-2019 Active Azithromycin 250 MG Oral Tablet TAKE 2 TABLETS ON DAY 1 THEN TAKE 1 TABLET A DAY FOR 4 DAYS. * Quantity: 6 Refills: 0 TUNDE ERVIN APRN * Start : 26-Jun-2019 End : 01-Jul-2019 Active Levalbuterol HCl - 1.25 MG/3ML Inhalation Nebulization Solution USE 1 VIAL IN NEBULIZER 3 TIMES A DAY. * Quantity: 1 Refills: 0 TUNDE ERVIN APRN * Start : 26-Jun-2019 Active 12 x 3 ML Plas Cont Promethazine-DM 6.25-15 MG/5ML Oral Syrup TAKE 5 ML EVERY 4 TO 6 HOURS NEEDED FOR COUGH. * Quantity: 210 Refills: 0 TUNDE ERVIN APRN * Start : 26-Jun-2019 Active Allergies and Adverse Reactions Name Dates [...] Z86.69) Status: Resolved Procedures Procedure Dates Details XRAY Chest 2 views [id number] Date: 26-Jun-2019 History of Appendectomy Completed History of Tonsillectomy With Adenoidectomy Completed History of Hysterectomy Completed History of Heart surgery Completed History of Transcatheter aortic valve replacement Completed Immunization Name Dates Details Varicella on: Dec-2007 Td on: 05-Nov-2009 Influenza on: 11-Jan-2011 Fluzone INJ Lot #: [id number] on: 27-Dec-2013 Influenza on: Jun-2015 Prevnar 13 Intramuscular Suspension Lot #: [id number] on: 24-Oct-2015 Fluzone High-Dose SUSP Lot #: [id number] on: 23-Apr-2016 Influenza, seasonal, injectable on: 23-Feb-2017 Pneumovax 23 25 MCG/0.5ML Injection Injectable Lot #: [id number] on: 14-Sep-2017 Influenza, high dose seasonal, preservative-free [...] (finding) Vital Signs Date Test Result Details [id number] O2 SAT 93 % Status: Comments: Source: RA :16 Systolic blood pressure 95 mm[Hg] Status: Comments: Location: LUE; Position: Sitting Diastolic blood pressure 76 mm[Hg] Status: Comments: Location: LUE; Position: Sitting O2 SAT 91 % Status: Comments: Source: RA Body height 62 in Status: Weight 129 lb Status: Body mass index (BMI) [Ratio] 23.59 kg/m2 Status: Body surface area Derived from formula 1.59 m2 Status: Body temperature 97.6 f Status: Comments: Method: Temporal Heart Rate 80 /min Status: Respiratory rate 16 /min Status: 1-Vdo-[id number]:23 Systolic blood pressure 128 mm[Hg] Status: Comments: Location: LUE; Position: Sitting Diastolic blood pressure 63 mm[Hg] Status: Comments: Location: LUE; Position: Sitting Body height 62 in Status: Weight 130 lb Status: Body mass index (BMI) [Ratio] 23.78 kg/m2 Status: Body surface area Derived from formula 1.59 m2 Status: Body temperature 98.2 f Status: Comments: Method: Temporal Heart Rate 81 /min Status: Respiratory rate 16 /min Status: Physical Findings 0 Status: Comments: Alcohol Screen - How many times in the past yr have you had 5 (for M) or 4 (for F) or 4 (for all > 65yrs) or more drinks in a day? Physical Findings 2 Status: Comments: PHQ-9 Adult Depression Screening Results Date Description Value Details :26 [O] Influenza A and B, Rapid Method (In Office) INFLUENZA A & B Rapid NEGATIVE (Normal) [id number]-[id number]:32 [O] Streptococcus Test Rapid (In Office) Group A Strep Screen NEGATIVe (Normal) Plan of Care Name Dates Details Planned Observations Planned Goals not documented Planned Encounters Appointment; ULYSSES MITCHELL On: 06-Jul-2019 15:45 Appointment; TITO [place] On: 31-Aug-2019 13:00 Appointment; KULDEEP WALDROP M.D. On: 17-Sep-2019 13:00 Appointment; JOSE ARMANDO VÁSQUEZ M.D. On: 20-Feb-2020 14:40 Interventions Provided Medication Changes* Azithromycin 250 MG Oral Tablet - Start * Levalbuterol HCl - 1.25 MG/3ML Inhalation Nebulization Solution - Start * Promethazine-DM 6.25-15 MG/5ML Oral Syrup - Start Labs/Procedures/Imaging* XRAY Chest 2 views [id number]; To Be Done: 26 Jun 2019 * [O] Influenza A and B, Rapid Method (In Office); Done: 26 Jun 2019 * [O] Streptococcus Test Rapid (In Office); Done: 26 Jun 2019 Medications/Immunizations Administered* Levalbuterol HCl - 1.25 MG/3ML Inhalation Nebulization Solution Instructions Name Dates Details Instructions not documented Encounters Appointment; TUNDE ERVIN APRN Encounter Diagnosis: Problem not documented On: 14-Sep-2017 10:00 Appointment; JOSE ARMANDO VÁSQUEZ M.D. Encounter Diagnosis: Problem not documented On: 20-Sep-2017 14:20 Appointment; LEON UMANA M.D. Encounter Diagnosis: Problem not documented On: 22-Sep-2017 13:00 Appointment; [facility], [facility] Encounter Diagnosis: Problem not documented On: 28-Sep-2017 13:00 Appointment; JOSE ARMANDO VÁSQUEZ M.D. Encounter Diagnosis: Problem not documented On: 28-Sep-2017 14:00 Appointment; JOSE ARMANDO VÁSQUEZ M.D. Encounter Diagnosis: Problem not documented On: 11-Nov-2017 10:40 Appointment; TUNDE ERVIN APRN Encounter Diagnosis: Problem not documented On: 03-May-2018 9:30 Appointment; [facility], ECHO Encounter Diagnosis: Problem not documented On: [...] Problem not documented On: 16-Aug-2018 12:20 Appointment; [facility]-, ECHO Encounter Diagnosis: Problem not documented On: [...] Diagnosis: Problem not documented On: 13-Jun-2019 10:45 Appointment; TUNDE ERVIN APRN Encounter Diagnosis: Problem not documented On: 26-Jun-2019 12:00
--- OUTSIDE RECORDS SUMMARY | 2019-06-26 19:25 | XMS REPORT | Summary of Care ---
Author Author Nissa Nation M.A. Unknown Address Unknown Phone Unavailable Care Team Providers Care Bridge Teacher Name Role Phone AZIZA TREVIZO, TUNDE Unavailable Unavailable ML Proctor, ASIM UMANA M.D., LENO Unavailable Unavailable THALIA Proctor, JOSE ARMANDO Unavailable Unavailable ML MIN [place], ASIM Lombardo Unavailable Unavailable STEPHEN MIN, ULYSSES Aldrich Unavailable Unavailable Kadeem MIN, Kuldeep Unavailable Unavailable GARTH MIN, CHIP Walters Unavailable Unavailable Thalia MIN, Jose Armando Unavailable Unavailable AZIZA CARPENTRY SUPERVISOR-C, TUNDE Avelar Unavailable Unavailable Sweta MIN, Leon [...] Status: Active Anemia (285.9, D64.9) Status: Active [facility] (current) use of antithrombotics/antiplatelets (V58.63, Z79.02) Status: [...] ERVIN APRN * Start : 19-Dec-2018 Active Omeprazole 40 MG Oral Capsule Delayed Release TAKE 1 CAPSULE DAILY * Quantity: 30 Refills: 11 LEON UMANA M.D. * Start : 22-Sep-2017 Active Ezetimibe 10 MG Oral Tablet TAKE 1 TABLET BY MOUTH EVERY DAY * Quantity: 90 Refills: 2 JOSE ARMANDO VÁSQUEZ M.D. * Start : 16-Aug-2018 Active amLODIPine Besylate [...] Influenza on: 11-Jan-2011 Fluzone INJ Lot #: [id number] on: 27-Dec-2013 Influenza on: Jun-2015 Prevnar 13 Intramuscular Suspension Lot #: [id number] on: 24-Oct-2015 Fluzone High-Dose SUSP Lot #: [id number] on: 23-Apr-2016 Influenza, seasonal, injectable on: 23-Feb-2017 Pneumovax 23 25 MCG/0.5ML Injection Injectable Lot #: [id number] on: 14-Sep-2017 Influenza, high dose seasonal, preservative-free [...] Appointment; ULYSSES MITCHELL On: 20-Jun-2019 11:00 Appointment; [facility] On: 31-Aug-2019 13:00 Appointment; KULDEEP WALDROP [...] not documented On: 14-Sep-2017 10:00 Appointment; JOSE ARMANOD VÁSQUEZ M.D. Encounter Diagnosis: Problem not documented [...] Problem not documented On: 16-Aug-2018 12:20 Appointment; [facility], ECHO Encounter Diagnosis: Problem not documented On: [...]
--- OUTSIDE RECORDS SUMMARY | 2019-06-26 19:26 | XMS REPORT | Summary of Care ---
Author Author TUNDE ERVIN APRN Unknown Address Unknown Phone Unavailable Care Team Providers Care Tyre Builder Name Role Phone TUNDE ERVIN APRN Unavailable Unavailable ML Proctor, ASIM Unavailable Levy UMANA M.D., LEON Unavailable Unavailable THALIA Proctor, JOSE ARMANDO Unavailable Unavailable ML MIN IN, ASIM Lombardo Unavailable Unavailable STEPHEN MIN, ULYSSES Aldrich Unavailable Unavailable Kadeem MIN, Kuldeep Unavailable Unavailable GARTH MIN, CHIP Walters Unavailable Unavailable Thalia MIN, Jose Armando Unavailable Unavailable AZIZA SUPERINTENDENT MARINE-C, TUNDE Avelar Unavailable Unavailable Sweta MIN, Leon [...] Status: Active Anemia (285.9, D64.9) Status: Active [facility] (current) use of antithrombotics/antiplatelets (V58.63, Z79.02) Status: [...] 1 TABLET ONCE WEEKLY. * Refills: 0 M.A. Active Gabapentin 100 MG Oral Capsule TAKE 1 CAPSULE 3 TIMES DAILY- DR. LEON * Refills: 0 M.A. * Start : 16-Apr-2016 Active Iron TABS TAKE 1 TABLET DAILY * Refills: 0 M.A. Active Folic Acid TABS TAKE 1 TABLET DAILY * Refills: 0 M.A. Active Ventolin HFA 108 (90 Base) MCG/ACT Inhalation Aerosol Solution INHALE 1-2 PUFFS EVERY 8 HOURS PRN * Quantity: 1 Refills: 0 TUNDE ERVIN APRN * Start : 20-May-2017 Active 18 GM Inhaler Methotrexate Sodium SOLN INJECTION WEEKLY * Refills: 0 M.A. Active predniSONE 10 MG Oral Tablet as needed * Refills: 0 M.A. Active Omeprazole 40 MG Oral Capsule Delayed Release TAKE 1 CAPSULE DAILY * Quantity: 30 Refills: 11 LEON UMANA M.D. * Start : 22-Sep-2017 Active Coenzyme Q10 200 MG Oral Capsule TAKE 1 CAPSULE Daily AT DINNER * Quantity: 30 Refills: 0 TUNDE ERVIN APRN * Start : 03-May-2018 Active Inflectra 100 MG Intravenous Solution Reconstituted EVERY 6-8 WEEKS * Refills: 0 M.A. Active Ezetimibe 10 MG Oral Tablet TAKE [...] Influenza on: 11-Jan-2011 Fluzone INJ Lot #: [id number] on: 27-Dec-2013 Influenza on: Jun-2015 Prevnar 13 Intramuscular Suspension Lot #: [id number] on: 24-Oct-2015 Fluzone High-Dose SUSP Lot #: [id number] on: 23-Apr-2016 Influenza, seasonal, injectable on: 23-Feb-2017 Pneumovax 23 25 MCG/0.5ML Injection Injectable Lot #: [id number] on: 14-Sep-2017 Influenza, high dose seasonal, preservative-free [...] (finding) Vital Signs Date Test Result Details :59 O2 SAT 93 % Status: Comments: Source: :16 Systolic blood pressure 95 mm[Hg] Status: Comments: Location: LUE; Position: Sitting Diastolic blood pressure 76 mm[Hg] Status: Comments: Location: LUE; Position: Sitting O2 SAT 91 % Status: Comments: Source: Body height 62 in Status: Weight 129 lb Status: Body mass index (BMI) [Ratio] 23.59 kg/m2 Status: Body surface area Derived from formula 1.59 m2 Status: Body temperature 97.6 f Status: Comments: Method: Temporal Heart Rate 80 /min Status: Respiratory rate 16 /min Status: [id number] Systolic blood pressure 128 mm[Hg] Status: Comments: [...] INFLUENZA A & B Rapid NEGATIVE (Normal) :32 [O] Streptococcus Test Rapid (In Office) Group A Strep Screen NEGATIVe (Normal) [id number] XRAY Chest 2 views [id number] Chest 2 views SEE NOTES Comments: EXAM: XR CHEST 2 VIEWSDATE: 06/26/2019 13:33 CDTINDICATION: - acute bronchitis due to infectionCOMPARISON: None.TECHNIQUE: PA and lateral chest radiographs.FINDINGS:Lines, tubes and hardware: None. 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 The lungs are otherwiseclear. The costophrenic sulci are sharp without effusion. No pneumothorax isidentified.Heart and mediastinum: The heart size is normal. The mediastinal contours arenormal.Bones, soft tissues: No acute abnormality.IMPRESSION: Ill-defined linear opacities in the left lower lung zone/lower lobe likelyfavored to represent a confluence of vascular structures versus developingpneumonia. If there are persistent clinical symptoms a repeat chest radiographcan be performed.--Read by: Gino Sharif MDDictated Date/time: 06/26/19 14:13Electronically Signed by: Gino Sharif MD 06/25/2013:17FINAL REPORT Plan of Care Name Dates Details Planned Observations Planned Goals not documented Planned Encounters Appointment; ULYSSES MITCHELL On: 06-Jul-2019 15:45 Appointment; YASEMIN TITO On: 31-Aug-2019 13:00 Appointment; KULDEEP WALDROP M.D. On: 17-Sep-2019 13:00 Appointment; JOSE ARMANDO VÁSQUEZ M.D. On: 20-Feb-2020 14:40 Interventions Provided Labs/Procedures/Imaging* XRAY Chest 2 views [id number]; Done: 26 Jun 2019 Discussion/Summary* Chest X-ray showed possible Pneumonia. Patient started on Z-ronnie. Advised patient to monitor symptoms for 24 hrs if no improvement adivsed patient to go to ER. Instructions Name Dates Details Instructions not documented Encounters Appointment; TUNDE ERVIN APRN Encounter Diagnosis: Problem not documented On: 14-Sep-2017 10:00 Appointment; JOSE ARMANDO VÁSQUEZ M.D. Encounter Diagnosis: Problem not documented On: 20-Sep-2017 14:20 Appointment; LEON UMANA M.D. Encounter Diagnosis: Problem not documented On: 22-Sep-2017 13:00 Appointment; YASEMIN TITO Encounter Diagnosis: Problem not documented On: 28-Sep-2017 13:00 Appointment; JOSE ARMANDO VÁSQUEZ M.D. Encounter Diagnosis: Problem not documented On: 28-Sep-2017 14:00 Appointment; JOSE ARMANDO VÁSQUEZ M.D. Encounter Diagnosis: Problem not documented On: 11-Nov-2017 10:40 Appointment; TUNDE ERVIN APRN Encounter Diagnosis: Problem not documented On: 03-May-2018 9:30 Appointment; KADIE-, ECHO Encounter Diagnosis: Problem not documented On: [...] Problem not documented On: 16-Aug-2018 12:20 Appointment; [facility]3], ECHO Encounter Diagnosis: Problem not documented On: [...]
[2019-06-26] MEDS ORDERED: ACETAMINOPHEN 325 MG TAB PO ONE (20:00)
[2019-06-26] MEDS ORDERED: SODIUM CHLORIDE 0.9% 1000ML 1,000 ML IV ONE (20:00)
[2019-06-26 20:39] LABS: BASOPHILS % 0.2 % (0.0-1.0); EOSINOPHILS % 0.2 % (0.0-6.0); HEMATOCRIT 31.1 % (34.2-44.1); HEMOGLOBIN 10.3 g/dL (12.0-16.0); LYMPHOCYTES # (AUTO) 2.3 (1.0-3.2); LYMPHOCYTES % 12.4 % (18.0-39.1); MEAN CORPUSCULAR HEMOGLOBIN 29.3 pg (28-32); MEAN CORPUSCULAR HGB CONC 33.1 g/dL (31-35); MEAN CORPUSCULAR VOLUME 88.4 fL (81-99); MONOCYTES # (AUTO) 1.6 (0.2-0.8); NEUTROPHILS % 77.1 % (38.7-80.0); PLATELET COUNT 204 x10e3/uL (140-360); RED BLOOD COUNT 3.52 x10e6/uL (3.6-5.1)
[2019-06-26 20:49] LABS: INR 1.06; PROTHROMBIN TIME 14.5 seconds (11.9-14.5)
[2019-06-26] MEDS ORDERED: CEFEPIME 2 GM/NS 0.9% 100 ML 100 ML IV STA (20:56)
[2019-06-26 20:57] LABS: ALBUMIN 3.3 g/dL (3.5-5.0); ALBUMIN/GLOBULIN RATIO 0.6 (0.8-2.0); ANION GAP 15.6 mmol/L (8-16); CALCIUM 9.5 mg/dL (8.4-10.2); CREATININE, SERUM 1.61 mg/dL (0.57-1.11); POTASSIUM 3.6 mmol/L (3.5-5.1)
[2019-06-26 21:01] LABS: INFLUENZAE A&B ANTIGEN (RAPID) NEGATIVE (NEGATIVE)
[2019-06-26 21:02] LABS: STREPTOCOCCUS GRP A ANTIGEN NEGATIVE (NEGATIVE)
[2019-06-26 21:05] LABS: CREATINE KINASE MB 2.8 ng/mL (0-5.0)
--- NOTE | 2019-06-26 22:11 | Diagnostic Imaging Report ---
EXAMINATION: CHEST SINGLE (PORTABLE) INDICATION: Fever. Cough. COMPARISON: None FINDINGS: TUBES and LINES: None. LUNGS: Lungs are well inflated. Mild patchy density in the lower lobes, left greater than right. There is also mild patchy density in the bilateral apices, left greater than right. Mild perihilar, peribronchial thickening and perihilar streaky densities may reflect viral infection versus reactive airway disease. PLEURA: No pleural effusion or pneumothorax. HEART AND MEDIASTINUM: The cardiomediastinal silhouette is unremarkable. Mild prominence of the pulmonary hilum bilaterally, (the right represent enlarged pulmonary arteries, however, cannot exclude lymphadenopathy. BONES AND SOFT TISSUES: No acute osseous lesion. Soft tissues are unremarkable. UPPER ABDOMEN: No free air under the diaphragm. IMPRESSION: Findings suggestive of a viral infection versus reactive airway disease. Cannot exclude developing pneumonia particularly in the left lower lobe. Signed by: Dr. Leigh Ann Ohara M.D. on 06/26/2019 10:07 PM
[2019-06-26] MEDS ORDERED: ACETAMINOPHEN 325 MG TAB PO PRN (22:15)
[2019-06-26] MEDS ORDERED: SODIUM CHLORIDE FLUSH 10 ML SYR INJ PRN (22:15)
[2019-06-26] MEDS: AZITHROMYCIN 500MG/NS 250 ML 250 ML IV SCH (22:33)
[2019-06-26] MEDS: OSELTAMIVIR PHOSPHATE 75 MG CAP PO SCH (22:33)
[2019-06-26] MEDS ORDERED: MELATONIN3 MG PO (22:52)
[2019-06-26] MEDS ORDERED: LORAZEPAM 1 MG TAB PO PRN (23:00)
[2019-06-26 23:12] LABS: BILIRUBIN,URINE NEGATIVE (NEGATIVE); CLARITY,URINE CLEAR (CLEAR); COLOR,URINE YELLOW (YELLOW); KETONES,URINE NEGATIVE (NEGATIVE); LEUKOCYTE ESTERASE ,URINE 1+ (NEGATIVE); NITRITE,URINE NEGATIVE (NEGATIVE); PROTEIN,URINE DIPSTICK 1+ (NEGATIVE); URINE UROBILINOGEN 0.2 mg/dL (0.2 - 1)
[2019-06-26] MEDS ORDERED: ALBUTEROL SULFATE HFA 8GM INHALATION AEROSOL INH ONE (23:26)
[2019-06-26 23:34] LABS: BACTERIA,URINE FEW /HPF; EPITHELIAL CELLS,URINE FEW /LPF; RBC,URINE 0-5 /HPF (0-5)
[2019-06-27] VITALS (9 sets, daily range): BP systolic 137–179; BP diastolic 60–84
[2019-06-27] MEDS ORDERED: ULTRAM 50MG50 MG PO (01:10)
[2019-06-27] MEDS ORDERED: METHYLPREDNISOLO4 M1 PO (01:10)
[2019-06-27] MEDS ORDERED: ALENDRONATE SOD70 MG PO (01:10)
[2019-06-27] MEDS ORDERED: PREDNISONE5 MG PO (01:10)
[2019-06-27] MEDS ORDERED: CYCLOBENZAPRINE5 MG PO (01:10)
[2019-06-27] MEDS ORDERED: FLUTICASONE PRO16 GM (01:10)
[2019-06-27] MEDS ORDERED: LISINOPRIL-HCT1 EACH PO (01:10)
[2019-06-27] MEDS ORDERED: METHOTREXA25 MG/1 M1 (01:10)
[2019-06-27] MEDS ORDERED: EZETIMIBE10 MG PO (01:10)
[2019-06-27] MEDS ORDERED: DULOXETINE HCL30 MG PO (01:10)
[2019-06-27] MEDS ORDERED: GABAPENTIN300 MG PO (01:10)
[2019-06-27] MEDS ORDERED: AMLODIPINE BESY10 MG PO (01:10)
[2019-06-27] MEDS ORDERED: CRESTOR10 MG PO (01:11)
[2019-06-27] MEDS ORDERED: CO Q-10200 MG PO (01:11)
[2019-06-27] MEDS: CEFEPIME 2 GM/NS 0.9% 100 ML 100 ML IV SCH ×2 (05:30→14:20)
[2019-06-27 05:58] LABS: BASOPHILS % 0.1 % (0.0-1.0); EOSINOPHILS # (AUTO) 0.1 (0.0-0.4); EOSINOPHILS % 0.6 % (0.0-6.0); HEMATOCRIT 26.4 % (34.2-44.1); HEMOGLOBIN 8.9 g/dL (12.0-16.0); LYMPHOCYTES # (AUTO) 1.9 (1.0-3.2); LYMPHOCYTES % 16.2 % (18.0-39.1); MEAN CORPUSCULAR HEMOGLOBIN 29.5 pg (28-32); MEAN CORPUSCULAR HGB CONC 33.7 g/dL (31-35); MEAN CORPUSCULAR VOLUME 87.4 fL (81-99); MONOCYTES # (AUTO) 1.1 (0.2-0.8); NEUTROPHILS # (AUTO) 8.8 (2.1-6.9); NEUTROPHILS % 73.1 % (38.7-80.0); PLATELET COUNT 171 x10e3/uL (140-360); RED BLOOD COUNT 3.02 x10e6/uL (3.6-5.1); RED CELL DISTRIBUTION WIDTH 13.8 % (11.7-14.4)
[2019-06-27 06:24] LABS: ALANINE AMINOTRANSFERASE 19 IU/L (0-55); ALBUMIN 2.5 g/dL (3.5-5.0); ALBUMIN/GLOBULIN RATIO 0.6 (0.8-2.0); ALKALINE PHOSPHATASE 65 IU/L (40-150); ANION GAP 10.2 mmol/L (8-16); BLOOD UREA NITROGEN 12 mg/dL (7-26); BUN/CREATININE RATIO 18 (6-25); CALCIUM 8.4 mg/dL (8.4-10.2); CARBON DIOXIDE 26 mmol/L (22-29); CHLORIDE 97 mmol/L (98-107); CREATININE, SERUM 0.68 mg/dL (0.57-1.11); EST GLOMERULAR FILTRATION RATE > 60 ML/MIN (60-); GLUCOSE 93 mg/dL (74-118); POTASSIUM 3.2 mmol/L (3.5-5.1); SODIUM 130 mmol/L (136-145)
[2019-06-27 06:52] LABS: CREATINE KINASE MB 3.1 ng/mL (0-5.0)
--- NOTE | 2019-06-27 07:00 | NUR ---
bedside shift report received pt in stable condition, denies pain at this time, l wrist 20g no ss of infiltration noted, updated on poc vocied understanding, no other co voiced call light in reach will continue to monitor
[2019-06-27] MEDS: OSELTAMIVIR PHOSPHATE 75 MG CAP PO SCH ×2 (08:40→17:00)
[2019-06-27] MEDS ORDERED: OMEPRAZOLE40 MG PO (09:23)
[2019-06-27] MEDS ORDERED: ASPIRIN81 MG PO (09:23)
--- NOTE | 2019-06-27 10:10 | NUR ---
consult for dr auguste called,
[2019-06-27] MEDS ORDERED: SODIUM CHLORIDE 0.9% 250ML 250 ML ONE (16:25)
[2019-06-27] MEDS ORDERED: GUAIFENESIN/DEXTROMETHORPHAN LIQD 5 ML UDC PO PRN (16:30)
[2019-06-27] MEDS: CEFTRIAXONE SOD 1 GM/NS 50 ML 50 ML IV SCH (17:00)
--- NOTE | 2019-06-27 18:05 | Consultation ---
DATE OF CONSULTATION: REASON FOR CONSULTATION: Fever, pneumonia. HISTORY OF PRESENT ILLNESS: This patient is very pleasant 78-year-old white female, denies any past medical history, comes in with one-week history of fever, chills and cough. The patient came to emergency room. Her white count was 18.13, hemoglobin of 10. Her sodium 130, potassium 3.2 with creatinine 0.68. When she first came, her creatinine was 1.16. The patient when she first came, she had a chest x-ray, which was suggestive of viral infection versus reactive airway disease (her was diagnosed with influenza and has been sick for the same time). PAST MEDICAL HISTORY: She denies. PAST SURGICAL HISTORY: She denies. ALLERGIES: NKA. SOCIAL HISTORY: There is no smoking, drug abuse, or alcohol abuse. FAMILY HISTORY: Otherwise unremarkable. REVIEW OF SYSTEMS: At the present time, she says since she came here, she is feeling much better. Her breathing is better. PHYSICAL EXAMINATION: GENERAL: She is currently alert, oriented, does not seem to be in acute distress. VITAL SIGNS: Stable, currently afebrile. HEENT: Not icteric. NECK: Supple. CHEST: Clear. ABDOMEN: Soft. IMPRESSION: I think the patient have atypical pneumonia probably from her influenza. We will agree with Tamiflu. Agree with Rocephin for possibility of pneumonia and azithromycin. I agree with IV fluids. Should she improve, we will discharge home tomorrow with Tamiflu and oral Augmentin and azithromycin. MD JESSICA Pratt/TAZ /[id number]
[2019-06-27] MEDS: AZITHROMYCIN 500MG/NS 250 ML 250 ML IV SCH (21:19)
[2019-06-27] MEDS ORDERED: BENZONATATE 100 MG CAP PO PRN (21:30)
[2019-06-27] MEDS ORDERED: HYDRALAZINE HCL 20 MG/ML VIAL IV PRN (21:30)
--- NOTE | 2019-06-27 22:16 | History and Physical ---
CHIEF COMPLAINT: Cough, congestion, fever, and myalgias. HISTORY OF PRESENT ILLNESS: A 78-year-old female, who comes into the ED with cough, congestion, fever, myalgias with flu-like symptoms. The patient reports this has been ongoing since last of last week. has similar findings, currently diagnosed with flu and he currently admitted in the hospital. The patient was seen and evaluated at bedside. She denies any chest pain or any palpitations or any shortness of breath. She reports feeling much better after receiving treatment with Tamiflu and antibiotics. The patient denies any other complaints at this time. Vital signs are stable during my evaluation. ID has been consulted. REVIEW OF SYSTEMS: Pertinent positive cough, congestion, fever, myalgias. The rest of 14-point review of systems are reviewed with the patient and are negative. ALLERGIES: PENICILLIN AND CODEINE. HOME MEDICATIONS: Alendronate, aspirin, Flonase, gabapentin, methotrexate, omeprazole, prednisone, Crestor, tramadol, lisinopril, and hydrochlorothiazide. PAST MEDICAL HISTORY: Hypertension, rheumatoid arthritis, peripheral neuropathy, and hyperlipidemia. PAST SURGICAL HISTORY: Reports none. FAMILY HISTORY: Hypertension and diabetes. SOCIAL HISTORY: No drugs. No alcohol. Does not smoke. Good social support. PHYSICAL EXAMINATION: VITAL SIGNS: Temperature 97.8, pulse 86, respiratory rate is 18, blood pressure 142/67, and pulse ox 95% on room air. GENERAL: In no acute distress. Alert and oriented x3. Cooperative on examination. HEENT: Head is normocephalic and atraumatic. Eyes; pupils are equal, round, and reactive to light bilaterally. Extraocular movements are intact. Throat; no evidence of erythema or exudates in the posterior pharynx. Has poor dentition. NECK: Supple. Good range of motion. PULMONARY: Clear to auscultation bilaterally. No wheezing, rales, or rhonchi. No crackles appreciated. CARDIOVASCULAR: Positive S1 and S2. No murmurs, rubs, or gallops appreciated. GI: Abdomen soft, nondistended and nontender to palpation. Bowel sounds present. MUSCULOSKELETAL: Strength is 5/5 throughout. No evidence of any muscle deficits on examination. No weakness appreciated. Neurologic: Cranial nerves 2 through 12 are grossly intact. No evidence of any neurological deficits on exam. SKIN: Intact. Warm to touch. Good cap refill. PSYCHIATRIC: Normal affect and mood. EXTREMITIES: No edema. Good range of motion throughout. LABORATORY FINDINGS: White count 12, on admission 18, and hemoglobin 8.9, hematocrit 26, and platelets 171. Coagulation; PT 14, INR 1.06. Chemistry; sodium 130, on admission it was 124 much improved, potassium 3.2, chloride 97, bicarb 26, anion gap of 12, creatinine is improved to 0.68, and glucose 93, calcium 8.4. LFTs within normal range. Alkaline phosphatase 65. Troponins have all been negative. Albumin 2.5. Urinalysis is negative. Serologies; syed virus is pending. Flu and group A strep is negative. MICROBIOLOGY: Blood cultures no growth. Blood cultures, no growth. Urine cultures, no growth to date. IMAGING STUDIES: Chest x-ray findings suggestive of viral infection versus reactive airway disease. Cannot exclude developing pneumonia particularly in the left lower lobe. IMPRESSION: 1. Flu-like symptoms, likely underlying flu. 2. Atypical pneumonia. 3. Hypertension. 4. Hyperlipidemia. 5. Hyponatremia. PLAN: At this time, continue with oral Tamiflu as she has been exposed by her with positive flu. Continue with IV antibiotics. Monitor cultures closely. ID has been consulted. Resume same home medications. Lovenox for DVT prophylaxis. Her sodium is much improved to 130. We just let her auto correct, get a.m. labs. Replace potassium accordingly. MD RAIN Sands/MARÍAL /[id number]
[2019-06-28] VITALS (7 sets, daily range): BP systolic 144–193; BP diastolic 65–87
[2019-06-28 06:18] LABS: BASOPHILS % 0.1 % (0.0-1.0); EOSINOPHILS # (AUTO) 0.1 (0.0-0.4); EOSINOPHILS % 1.3 % (0.0-6.0); HEMATOCRIT 26.6 % (34.2-44.1); LYMPHOCYTES # (AUTO) 1.7 (1.0-3.2); LYMPHOCYTES % 22.8 % (18.0-39.1); MEAN CORPUSCULAR HEMOGLOBIN 29.6 pg (28-32); MEAN CORPUSCULAR HGB CONC 33.8 g/dL (31-35); MEAN CORPUSCULAR VOLUME 87.5 fL (81-99); MONOCYTES # (AUTO) 0.8 (0.2-0.8); NEUTROPHILS # (AUTO) 4.7 (2.1-6.9); NEUTROPHILS % 62.9 % (38.7-80.0); PLATELET COUNT 227 x10e3/uL (140-360); RED BLOOD COUNT 3.04 x10e6/uL (3.6-5.1)
[2019-06-28 06:36] LABS: ANION GAP 13.3 mmol/L (8-16); BLOOD UREA NITROGEN 5 mg/dL (7-26); BUN/CREATININE RATIO 9 (6-25); CARBON DIOXIDE 26 mmol/L (22-29); CHLORIDE 99 mmol/L (98-107); CREATININE, SERUM 0.54 mg/dL (0.57-1.11); EST GLOMERULAR FILTRATION RATE > 60 ML/MIN (60-); GLUCOSE 96 mg/dL (74-118); POTASSIUM 3.3 mmol/L (3.5-5.1); SODIUM 135 mmol/L (136-145)
--- NOTE | 2019-06-28 07:00 | NUR ---
bedside shift report received pt in stable condition, updated on poc voiced understanding, denies pain at this time, call light in reach will continue to monitor
[2019-06-28] MEDS ORDERED: PANTOPRAZOLE SOD 40 MG TABEC PO SCH (07:30)
[2019-06-28] MEDS: FLUTICASONE PROPIONATE NASAL SPRAY NS SCH ×2 (09:00→17:20)
[2019-06-28] MEDS ORDERED: ASPIRIN 81 MG CHEW TAB PO SCH (09:00)
[2019-06-28] MEDS ORDERED: LISINOPRIL 20 MG TAB PO SCH ×2 (09:00)
[2019-06-28] MEDS ORDERED: HYDROCHLOROTHIAZIDE 25 MG TAB PO SCH ×2 (09:00)
[2019-06-28] MEDS: OSELTAMIVIR PHOSPHATE 75 MG CAP PO SCH ×2 (09:14→17:20)
[2019-06-28] MEDS: GABAPENTIN 300 MG CAP PO SCH ×2 (09:14→14:51)
[2019-06-28] MEDS ORDERED: ENOXAPARIN 30 MG/0.3 ML SYR SC SCH (17:00)
[2019-06-28] MEDS: CEFTRIAXONE SOD 1 GM/NS 50 ML 50 ML IV SCH (17:20)
--- NOTE | 2019-06-28 19:52 | NUR ---
PATIENT IS IN THE ROOM, DISCHARGE ORDER GIVEN BY DR AVILA, SHE IS WAITING FOR HER DAUGHTER. IV LINE DISCONTINUED. VITALS CHECKED. NO DISTRESS NOTED.
--- NOTE | 2019-06-28 20:36 | Discharge Summary ---
FINAL DISCHARGE DIAGNOSES: 1. Flu-like symptoms, likely have influenza flu. 2. Atypical pneumonia. 3. Hypertension. 4. Hyperlipidemia. 5. Hyponatremia, resolved. CONSULTANTS: Infectious Disease. PHYSICAL EXAMINATION: VITAL SIGNS: Temperature is 96.7, her T-max in the hospital is 99.8, pulse 66, respiratory rate is 22, blood pressure is 144/65, and pulse ox 95% on room air. LABORATORY FINDINGS: Show white count 7.5, hemoglobin 9, hematocrit is 26.6, and platelets of 227. Coagulation; PT 14, INR 1.06, and PTT 30. Chemistry; sodium 135, potassium is 3.3, chloride is 99, bicarb is 26, anion gap of 13, BUN is 5, and creatinine is 0.54. The patient had received potassium prior to being discharged. Glucose 96. Calcium is 9. LFTs were within normal range. Troponins were all negative. Albumin 2.5. Urinalysis noted. Serologies flu was negative. Group A strep was negative. Coronavirus PCR is pending. She will follow up as an outpatient. Apparently, the hospital will get the results report to the Health Department and they will also report to the patient as per hospital protocol. Blood cultures, no growth. Throat cultures, no growth. Urine cultures, no growth. IMAGING STUDIES: Chest x-ray findings suggestive of viral infection versus reactive airway disease. Possible underlying pneumonia in left lower lobe. HOSPITAL COURSE: A 78-year-old female presented to ED with cough, congestion, and subjective fever and myalgias. has been tested, found to be positive for influenza flu. The patient did not receive her vaccinations for her flu. The patient was admitted and treated with Tamiflu due to exposure from her . She was also treated for underlying pneumonia. Infectious Disease was consulted. Coronavirus PCR was pending. I discussed this case with the fur dressing supervisor including Infectious Disease in charge here in the hospital with administration and reports. The patient can be discharged and then all PCR Coronaviruses will be reported to the hospital and also be reported to the Health Department automatically. All test will be reported to the patient by the hospital upon discharge. The patient does not need to follow up with the hospital, as the hospital protocol is that they will follow up with her as well as the Health Department. All cases will be reported to the Health Department. The patient did well while she was here in the hospital stay. All cultures were negative. She was advised to follow up as an outpatient with the PCP. She was cleared for discharge by Infectious Disease. She was discharged on a Z-Adam as well as Tamiflu. On the day of discharge, vital signs were stable, labs reviewed and stable. The patient was seen and evaluated, and examined thoroughly on the day of discharge. No other complaints. The patient verbalized understanding and agrees to plan of care to follow up accordingly as an outpatient with the primary care physician in one week. MEDICATIONS: See medication reconciliation form. DISPOSITION: Home. CONDITION: Stable. DIET: Heart healthy. In the event of any worsening symptoms, the patient was advised to come back to the ED for further evaluation. Discharge summary took greater than 35 minutes. MD RAIN Sands/MARÍAL /[id number]
[2019-06-28] MEDS ORDERED: SIMVASTATIN 20 MG TAB PO SCH (21:00)
[2019-06-29] MEDS ORDERED: ASPIRIN 81 MG CHEW TAB PO SCH (21:00)
== END 2019-06-28 20:41 | disposition home or self-care (01) | DRG 194 ==
LOC: ER 19:21 → ERHOLD 22:21 → IMCU 06-27 01:24
PROVIDERS: ADMIT Internal Medicine; ATTEND Internal Medicine
DX: J18.9 Pneumonia, unspecified organism (principal); E87.1 Hypo-osmolality and hyponatremia; E78.5 Hyperlipidemia, unspecified; I10 Essential (primary) hypertension; Z88.0 Allergy status to penicillin; Z79.899 Other long term (current) drug therapy; M06.9 Rheumatoid arthritis, unspecified; G62.9 Polyneuropathy, unspecified; D64.9 Anemia, unspecified; Z87.891 Personal history of nicotine dependence
CPT/HCPCS: 36415; 71045; 80048; 80053; 81001; 82550; 82553; 83518; 83605; 84484; 85025; 85610; 85730; 87040; 87070; 87086; 87400; 87635; 93005; 99284; J0456; J0696; J7030; J7050

== ENCOUNTER 2023-11-08 11:38 | Emergency (ER) | payer OTHER ==
[~2023-11-08] VITALS: Ht 154.9 cm; Wt 58.5 kg
[~2023-11-08 11:38] MED LIST: ALENDRONATE SOD70 MG PO; AMLODIPINE BESY10 MG PO; ASPIRIN81 MG PO; CO Q-10200 MG PO; CRESTOR10 MG PO; CYCLOBENZAPRINE5 MG PO; DULOXETINE HCL30 MG PO; EZETIMIBE10 MG PO; FLUTICASONE PRO16 GM; GABAPENTIN300 MG PO; LISINOPRIL-HCT1 EACH PO; MELATONIN3 MG PO; METHOTREXA25 MG/1 M1; METHYLPREDNISOLO4 M1 PO; OMEPRAZOLE40 MG PO; PREDNISONE5 MG PO; ULTRAM 50MG50 MG PO
[2023-11-08 12:24] VITALS: TEMP 98.7
[2023-11-08 12:48] LABS: BASOPHILS % 0.4 % (0.0-1.0); EOSINOPHILS % 0.5 % (0.0-6.0); HEMATOCRIT 33.5 % (34.2-44.1); HEMOGLOBIN 10.7 g/dL (12.0-16.0); LYMPHOCYTES # (AUTO) 1.3 (1.0-3.2); LYMPHOCYTES % 17.9 % (18.0-39.1); MEAN CORPUSCULAR HEMOGLOBIN 30.6 pg (28-32); MEAN CORPUSCULAR HGB CONC 31.9 g/dL (31-35); MEAN CORPUSCULAR VOLUME 95.7 fL (81-99); MONOCYTES # (AUTO) 0.6 (0.2-0.8); MONOCYTES % 8.6 % (4.4-11.3); NEUTROPHILS # (AUTO) 5.3 (2.1-6.9); NEUTROPHILS % 71.5 % (38.7-80.0); PLATELET COUNT 245 x10e3/uL (140-360); RED CELL DISTRIBUTION WIDTH 13.4 % (11.7-14.4); WHITE BLOOD COUNT 7.43 x10e3/uL (4.8-10.8)
[2023-11-08 12:52] LABS: BILIRUBIN,URINE MODERATE (NEGATIVE); CLARITY,URINE CLOUDY (CLEAR); COLOR,URINE YELLOW (YELLOW); GLUCOSE, URINE NEGATIVE (NEGATIVE); KETONES,URINE 1+ (NEGATIVE); LEUKOCYTE ESTERASE ,URINE NEGATIVE (NEGATIVE); NITRITE,URINE NEGATIVE (NEGATIVE); PH,URINE 5.5 (5 - 7); PROTEIN,URINE DIPSTICK >=300 (NEGATIVE); URINE UROBILINOGEN 0.2 mg/dL (0.2 - 1)
[2023-11-08 13:08] LABS: INR 1.07; PROTHROMBIN TIME 14.7 seconds (11.9-14.5)
[2023-11-08 13:08] LABS: BACTERIA,URINE MODERATE /HPF; EPITHELIAL CELLS,URINE FEW /LPF; WBC,URINE (MAN) 0-5 /HPF (0-5)
[2023-11-08 13:09] LABS: PARTIAL THROMBOPLASTIN TIME 27.4 seconds (23.8-35.5)
[2023-11-08 13:19] LABS: ALBUMIN 2.9 g/dL (3.5-5.0); ALBUMIN/GLOBULIN RATIO 0.6 (0.8-2.0); ANION GAP 15.8 mmol/L (8-16); BILIRUBIN,TOTAL 0.6 mg/dL (0.2-1.2); CREATININE, SERUM 0.69 mg/dL (0.57-1.11); MAGNESIUM 1.5 MG/DL (1.3-2.1); POTASSIUM 3.8 mmol/L (3.5-5.1); TOTAL PROTEIN 7.9 g/dL (6.5-8.1)
[2023-11-08] MEDS: ONDANSETRON HCL INJ 2MG/ML 2ML 2 MG/ML VIAL IV STA (13:22)
[2023-11-08] MEDS: SODIUM CHLORIDE 0.9% 1000ML 1,000 ML IV STA (13:22)
[2023-11-08 13:42] LABS: TROPONIN I 0.025 ng/mL (0-0.300)
[2023-11-08] MEDS ORDERED: IOPAMIDOL 370 MG/ML 100 ML INFUS..BTL INJ ONE (14:03)
[2023-11-08] MEDS ORDERED: LEVSIN0.125 MG PO (14:42)
[2023-11-08] MEDS ORDERED: ONDANSETRON ODT4 MG PO (14:43)
[2023-11-08] MEDS ORDERED: MIRALAX17 GM PO (14:44)
[2023-11-08 15:00] VITALS: PULSE 84; RESP 16
[2023-11-08 15:13] VITALS: BP 142/51; PULSE 84; RESP 18; O2SAT 100
== END 2023-11-08 15:17 | disposition home or self-care (01) ==
LOC: ER 12:06
DX: K59.00 Constipation, unspecified (principal); R11.10 Vomiting, unspecified; R10.31 Right lower quadrant pain; I10 Essential (primary) hypertension; I48.91 Unspecified atrial fibrillation; C95.90 Leukemia, unspecified not having achieved remission; I44.7 Left bundle-branch block, unspecified; Z79.899 Other long term (current) drug therapy; Z79.82 Long term (current) use of aspirin
CPT/HCPCS: 36415; 71045; 74177; 80053; 81001; 82550; 83690; 83735; 84484; 85025; 85610; 85730; 87086; 93005; 99283; J2405; J7030; Q9967